=== PATIENT | male | born 1975 | race Caucasian/White ===

== ENCOUNTER 2022-09-12 07:13 | Emergency (ER) | payer OTHER, SELFPAY ==
[2022-09-12 07:00] VITALS: BP 138/90; PULSE 110; RESP 18; TEMP 36.8; O2SAT 93; BMI 30.7
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
--- NOTE | 2022-09-12 07:11 | PC.NURSE ---
abrasion noted to upper left scapular area
== END 2022-09-12 07:35 | disposition home or self-care (01) ==
LOC: ER 07:42
PROVIDERS: Emergency Provider Emergency Medicine Emergency Medical Services; PCP Nurse Practitioner Family
DX: S40.212A Abrasion of left shoulder, initial encounter (principal); V43.52XA Car driver injured in collision with other type car in traffic accident, initial encounter
CPT/HCPCS: 99283

== ENCOUNTER 2023-02-23 01:08 | Emergency (ER) | payer OTHER, SELFPAY ==
[2023-02-23 01:11] VITALS: BP 125/89; PULSE 98; RESP 16; TEMP 36.7; O2SAT 97; BMI 29.8
--- NOTE | 2023-02-23 01:27 | ED_ITS ---
HPI - General Adult General Chief complaint: Headache Stated complaint: HEADACHE Time Seen by Provider: 02/23/23 01:13 History of Present Illness HPI narrative: Over the past week the patient has been getting nightly migraines. He had them months ago but they went away after he got some teeth pulled. They returned about a week ago. he does not take any migraine-specific medication, ex. triptan, for his headaches. Pain along the left side of the face. He has some nausea without vomiting. No photophobia, neck pain, fever, muscle aches, cough or sore throat. Related Data Home Medications Medication Instructions Recorded Confirmed duloxetine 60 mg capsule,delayed 60 mg PO DAILY 02/23/23 02/23/23 release glimepiride 4 mg tablet 4 mg PO BID 02/23/23 02/23/23 metformin 500 mg tablet 500 mg PO BID 02/23/23 02/23/23 Previous Rx's Medication Instructions Recorded sumatriptan succinate 50 mg tablet See Rx Instructions PO .COMPLEX 02/23/23 #10 tabs Allergies Allergy/AdvReac Type Severity Reaction Status Date / Time No Known Drug Allergies Allergy Verified 09/12/22 07:03 [facility] Social History Smoking status: Former smoker Exam Narrative Exam Narrative: Nurses notes and vital signs reviewed and patient is not hypoxic. afebrile General: Well-appearing and in no apparent distress. Skin: Warm, dry, no pallor noted. No rash. Head: Normocephalic, atraumatic. Neck: Supple, non-tender. no meningismus Eye: Pupils are equal, round and EOMI. No scleral icterus. no nystagmus Ears, Nose, Mouth, and Throat: TM are clear, no nasal mucosal hypertrophy. Oral mucosa is moist, no posterior oropharynx erythema, uvula is mid-line Cardiovascular: Regular Rate and Rhythm without murmur, gallop or rub. Respiratory: No accessory muscle use or respiratory distress. Lungs are clear to auscultation, no wheezing, rales or rhonchi Neurological: A&O x4. No cranial nerve dysfunction observed. No truncal ataxia. Moves all extremities. Sensation intact. Psychiatric: Cooperative and interactive. Normal mood and affect. Constitutional Vital Signs, click to edit/add: Last Vital Signs Temp 98.1 F 02/23/23 01:11 Pulse 98 H 02/23/23 01:11 Resp 16 02/23/23 01:11 BP 125/89 02/23/23 01:11 Pulse Ox 97 02/23/23 01:11 O2 Del Method Room Air 02/23/23 01:11 Course Vital Signs Vital signs: Vital Signs Temperature 98.1 F 02/23/23 01:11 Pulse Rate 98 H 02/23/23 01:11 Respiratory Rate 16 02/23/23 01:11 Blood Pressure 125/89 02/23/23 01:11 Pulse Oximetry 97 02/23/23 01:11 Oxygen Delivery Method Room Air 02/23/23 01:11 Temperature 98.1 F 02/23/23 01:11 Pulse Rate 98 H 02/23/23 01:11 Respiratory Rate 16 02/23/23 01:11 Blood Pressure 125/89 02/23/23 01:11 Pulse Oximetry 97 02/23/23 01:11 Oxygen Delivery Method Room Air 02/23/23 01:11 Medical Decision Making MDM Narrative Medical decision making narrative: the patient was given Toradol, Solu-Medrol, Zofran and Benadryl. He was prescribed sumatriptan take at home. Primary physician follow-up recommended. emergency Department return if he worsens. Discharge Plan Discharge Chief Complaint: Headache Clinical Impression: Migraine Patient Disposition: Home, Self-Care Time of Disposition Decision: 01:30 Prescriptions / Home Meds: New sumatriptan succinate 50 mg tablet See Rx Instructions .ROUTE .COMPLEX Qty: 10 0RF Rx Instructions: take 1 tab at onset of headache; if no relief may repeat 1 tab after at least 2 hrs; max = 4 tabs/24 hr No Action metformin 500 mg tablet 500 mg PO BID glimepiride 4 mg tablet 4 mg PO BID duloxetine 60 mg capsule,delayed release(DR/EC) 60 mg PO DAILY Instructions: Migraine Headache (ED) Stand Alone Forms: Portal Instructions Referrals: ELEONORA DENISE [Primary Care Provider] - 1 week
[2023-02-23] MEDS: ONDANSETRON 4 MG RAPDIS TABLET SL (01:43)
[2023-02-23] MEDS: METHYLPREDNISOLONE SOD SUCC PF 125 MG/2 ML VIAL IM (01:43)
[2023-02-23] MEDS: DIPHENHYDRAMINE HCL 25 MG CAPSULE PO (01:43)
[2023-02-23] MEDS: KETOROLAC TROMETHAMINE 60 MG/2 ML VIAL IM (01:43)
== END 2023-02-23 01:52 | disposition home or self-care (01) ==
PROVIDERS: Emergency Provider Emergency Medicine; PCP Nurse Practitioner Family
DX: G43.909 Migraine, unspecified, not intractable, without status migrainosus (principal); Z79.84 Long term (current) use of oral hypoglycemic drugs; Z87.891 Personal history of nicotine dependence
CPT/HCPCS: 96372; 99284; J2930

== ENCOUNTER 2023-08-04 07:01 | Outpatient (OUT) | payer OTHER, SELFPAY ==
--- OUTSIDE RECORDS SUMMARY | 2023-08-04 07:04 | XMS_ITS | CCD ---
Author Organization [facility] Care Team Providers Care Professional Skater Name Role Phone SELF, REFERRED Primary Care Unavailable TANVI VAZQUEZ Surgeon Unavailable TANVI VAZQUEZ Attending Unavailable TANVI VAZQUEZ Admitting Unavailable [place] Procedure Practitioner Unavailab le SELF, REFERRED Referring Unavailable ELEONORA DAMIAN Admitting Unavailable ELEONORA DAMIAN Attending Unavailable SILVANA, DR WILLS Primary Care Unavailable SILVANA, DR WILLS Admitting Unavailable SILVANA, DR WILLS Attending Unavailable SILVANA, DR WILLS Primary Care Unavailable SILVANA, DR WILLS Consulting Unavailable ELEONORA DAMIAN Admitting Unavailable ELEONORA DAMIAN Attending Unavailable ELEONORA DAMIAN Primary Care Unavailable ELEONORA DAMIAN Consulting Unavailable Allergies Allergy Classification Reported Allergen(s) Allergy Type Date of Onset Reaction(s) Facility (2 sources) Amoxicillin / Clavulanate Drug Allergy [facility] Problems Problem Classification Problem Date Documented Da te Episodic/Chronic Diabetes mellitus without complication (4 sources) Type 2 diabetes mellitus without complications; Translations: [TYPE 2 DM WITHOUT COMPLICATIONS] Onset: 12-24-2021 Chronic Diabetes mellitus without complication (1 source) Other abnormal glucose; Translations: [OTHER ABNORMAL GLUCOSE] Onset: 12-27-2021 Episodic Results Test Name Value Interpretation Reference Range Facility GLYCOHEMOGLOBIN A1Con 2021 ADA RECOMMENDATION SEE BELOW Normal [facility] Comment on above: Result Comment: ADA RECOMMENDED LIMIT 4.0 - 6.0 ADA THERAPEUTIC TARGET < 7.0 ACTION SUGGESTED > 7.0 Performed By: #### A 1C #### [facility] [address] [address] [address] Rhonda Layton Glucose [Mass/Vol] 120 mg/dL Normal [facility] Comment on above: Performed By: #### A 1C #### [facility] [address] [place], [place] [address] Dr. Rhonda Layton HbA1c (Bld) [Mass fraction] 5.8 % Normal 4.5-6.2 [facility] Comment on above: Performed By: #### A 1C #### [facility] [address] [place] [address] Dr. Rhonda Layton INSULINon 07-02-2021 Insulin 8.6 uIU/mL Normal 2.6-24.9 [facility] Comment on above: Performed By: #### I NSULIN #### [facility] [address] [place] [address] Dr. Rhonda Layton CBC AUTO DIFFon 07-01-2021 BASO # 0.0 103/ul Normal 0.0-0.1 [facility] Comment on above: Performed By: #### C BC #### [facility] [address] [place] [address] Dr. Rhonda Layton Basophils/100 WBC (Bld) 0.5 % Normal 0.2-2.0 [facility] Comment on above: Performed By: #### C BC #### [facility] [address] [place] [address] Dr. Rhonda Layton EO # 0.1 103/ul Normal 0.0-0.7 [facility] Comment on above: Performed By: #### C BC #### [facility] [address] [place] [address] Dr. Rhonda Layton Eosinophils/100 WBC (Bld) 1.5 % Normal 0.9-7.0 [facility] Comment on above: Performed By: #### C BC #### [facility] [address] [place] [address] Dr. Rhonda Layton Erythrocyte distribution width (RBC) [Ratio] 13.7 % Normal 11.0-15.0 [facility] Comment on above: Performed By: #### C BC #### [facility] [address] [place] [address] Dr. Rhonda Layton Hematocrit (Bld) [Volume fraction] 41.8 % Critically low 42.0-54.0 [facility] Comment on above: Performed By: #### C BC #### [facility] [address] [place] [address] Dr. Rhonda Layton Hemoglobin (Bld) [Mass/Vol] 13.7 g/dL Critically low 14.0-18.0 [facility] Comment on above: Performed By: #### C BC #### [facility] [address] [place] [address] Dr. Rhonda Layton IG # 0.03 10e3/ul Normal 0.00-0.03 [facility] Comment on above: Performed By: #### C BC #### [facility] [address] [place] [address] Dr. Rhonda Layton IG % 0.5 % Normal 0.0-0.5 [facility] Comment on above: Performed By: #### C BC #### [facility] [address] [place] [address] Dr. Rhonda Layton LYMPH # 1.2 103/ul Normal 1.2-3.8 [facility] Comment on above: Performed By: #### C BC #### [facility] [address] [place] [address] Dr. Rhonda Layton Lymphocytes/100 WBC (Bld) 19.5 % Critically low 20.5-60.0 [facility] Comment on above: Performed By: #### C BC #### [facility] [address] [place] [address] Dr. Rhonda Layton MANUAL DIFF REQ NO Normal [facility] Comment on above: Performed By: #### C BC #### [facility] [address] [place] [address] Dr. Rhonda Layton MCH (RBC) [Entitic mass] 28.5 pg Normal 25.9-34.0 [facility] Comment on above: Performed By: #### C BC #### [facility] [address] [place] [address] Dr. Rhonda Layton MCHC (RBC) [Mass/Vol] 32.8 g/dL Normal 29.9-35.2 [facility] Comment on above: Performed By: #### C BC #### [facility] [address] [place] [address] Dr. Rhonda Layton MCV (RBC) [Entitic vol] 86.9 fL Normal 80.0-94.0 [facility] Comment on above: Performed By: #### C BC #### [facility] [address] [place] [address] Dr. Rhonda Layton MONO # 0.6 103/ul Normal 0.3-0.8 [facility] Comment on above: Performed By: #### C BC #### [facility] [address] [place] [address] Dr. Rhonda Layton Monocytes/100 WBC (Bld) 8.9 % Normal 1.7-12.0 [facility] Comment on above: Performed By: #### C BC #### [facility] [address] [place] [address] Dr. Rhonda Layton NEUT # 4.3 103/ul Normal 1.4-6.5 [facility] Comment on above: Performed By: #### C BC #### [facility] [address] [place] [address] Dr. Rhonda Layton Neutrophils/100 WBC (Bld) 69.1 % Normal 43.0-75.0 [facility] Comment on above: Performed By: #### C BC #### [facility] [address] [place] [address] Dr. Rhonda Layton Platelet mean volume (Bld) [Entitic vol] 9.4 fL Critically low 9.5-13.5 [facility] Comment on above: Performed By: #### C BC #### [facility] [address] [place] [address] Dr. Rhonda Layton PLT 221 103/ul Normal 150-450 [facility] Comment on above: Performed By: #### C BC #### [facility] [address] [place] [address] Dr. Rhonda Layton RBC 4.81 106/ul Normal 4.70-6.10 [facility] Comment on above: Performed By: #### C BC #### [facility] [address] [place] [address] Dr. Rhonda Layton WBC 6.2 103/ul Normal 4.0-11.0 [facility] Comment on above: Performed By: #### C BC #### [facility] [address] [address] [address] Rhonda Layton FREE THYROXINE INDEX T7on FTI 2.84 Normal [facility] Comment on above: Performed By: #### T 7, CMP, LIPID, TSH #### [facility] [address] [place] [address] Dr. Rhonda Layton T3U 36.0 % Normal 23.5-40.5 [facility] Comment on above: Performed By: #### T 7, CMP, LIPID, TSH #### [facility] [address] [place] [address] Dr. Rhonda Layton T4 [Mass/Vol] 7.90 ug/dL Normal 5.53-11.00 [facility] Comment on above: Performed By: #### T 7, CMP, LIPID, TSH #### [facility] [address] [place] [address] Dr. Rhonda Layton GLYCOHEMOGLOBIN A1Con 2021 ADA RECOMMENDATION ADA THERAPEUTIC TARG ET 6.0 - 7.0 ACTION SUGGESTED > 7.0 Normal [facility] Comment on above: Performed By: #### A 1C #### [facility] [address] [place] [address] Dr. Rhonda Layton Glucose [Mass/Vol] 232 mg/dL Normal [facility] Comment on above: Performed By: #### A 1C #### [facility] [address] [place] [address] Dr. Rhonda Layton HbA1c (Bld) [Mass fraction] 9.7 % Critically high <=6.0 [facility] Comment on above: Performed By: #### A 1C #### [facility] [address] [place] [address] Dr. Rhonda Layton LIPID PROFILEon 07-01-2021 CHOL-HDL RATIO NORM SEE BELOW Normal [facility] Comment on above: Result Comment: 3.3 - 4.4 LOW RISK 4.4 - 7.1 AVERAGE RISK 7.1 - 11.0 MODERATE RISK >11.0 HIGH RISK Performed By: #### T 7, CMP, LIPID, TSH #### [facility] [address] [address] [address] Rhonda Layton Cholesterol [Mass/Vol] 173 mg/dL Normal <=200 [facility] Comment on above: Performed By: #### T 7, CMP, LIPID, TSH #### [facility] [address] [address] [address] Rhonda Layton Cholesterol in HDL [Mass/Vol] 36 mg/dL Critically low 40-60 [facility] Comment on above: Performed By: #### T 7, CMP, LIPID, TSH #### [facility] [address] [address] [address] Rhonda Layton Cholesterol in LDL [Mass/Vol] 113.0 mg/dL Normal [facility] Comment on above: Performed By: #### T 7, CMP, LIPID, TSH #### [facility] [address] [address] [address] Rhonda Layton Cholesterol.total/C holesterol in HDL [Mass ratio] 4.8 {ratio} Normal [facility] Comment on above: Performed By: #### T 7, CMP, LIPID, TSH #### [facility] [address] [address] [address] Rhonda Layton HDL NORMAL > or = 60 mg/dl - LO W CARDIOVASCULAR RISK <40 mg/dl - HIGH CARDIOVASCULAR RISK Normal [facility] Comment on above: Performed By: #### T 7, CMP, LIPID, TSH #### [facility] [address] [address] [address] Rhonda Layton LDL CALC NORMAL SEE BELOW Normal [facility] Comment on above: Result Comment: <100 mg/dl OPTIMAL 100 - 129 mg/dl NEAR OR ABOVE OPTIMAL 130 - 159 mg/dl BORDERLINE HIGH 160 - 189 mg/dl HIGH >190 mg/dl VERY HIGH Performed By: #### T 7, CMP, LIPID, TSH #### [facility] [address] [address] [address] Rhonda Layton Triglyceride [Mass/Vol] 120 mg/dL Normal <=150 [facility] Comment on above: Performed By: #### T 7, CMP, LIPID, TSH #### [facility] [address] [address] [address] Rhonda Layton VLDL CALC 24.0 mg/dL Normal [facility] Comment on above: Performed By: #### T 7, CMP, LIPID, TSH #### [facility] [address] [address] [address] Rhonda Layton PROF 14(COMP METB)on 022 Albumin [Mass/Vol] 3.8 g/dL Normal 3.4-5.0 [facility] Comment on above: Performed By: #### T 7, CMP, LIPID, TSH #### [facility] [address] [address] [address] Rhonda Layton Albumin/Globulin [Mass ratio] 1.1 {ratio} Normal [facility] Comment on above: Performed By: #### T 7, CMP, LIPID, TSH #### [facility] [address] [address] [address] Rhonda Layton ALP [Catalytic activity/Vol] 82 U/L Normal 46-116 [facility] Comment on above: Performed By: #### T 7, CMP, LIPID, TSH #### [facility] [address] [address] [address] Rhonda Layton ALT [Catalytic activity/Vol] 24 U/L Normal 16-63 [facility] Comment on above: Performed By: #### T 7, CMP, LIPID, TSH #### [facility] [address] [address] [address] Rhonda Layton Anion gap [Moles/Vol] 13.1 mmol/L Normal [facility] Comment on above: Performed By: #### T 7, CMP, LIPID, TSH #### [facility] [address] [address] [address] Rhonda Layton AST [Catalytic activity/Vol] 9 U/L Critically low 15-37 [facility] Comment on above: Performed By: #### T 7, CMP, LIPID, TSH #### [facility] [address] [address] [address] Rhonda Layton Bilirubin [Mass/Vol] 1.2 mg/dL Normal 0.2-1.3 [facility] Comment on above: Performed By: #### T 7, CMP, LIPID, TSH #### [facility] [address] [place] [address] Dr. Rhonda Layton Calcium [Mass/Vol] 8.7 mg/dL Normal 8.5-10.1 [facility] Comment on above: Performed By: #### T 7, CMP, LIPID, TSH #### [facility] [address] [place] [address] Dr. Rhonda Layton Chloride [Moles/Vol] 104 mmol/L Normal 98-107 [facility] Comment on above: Performed By: #### T 7, CMP, LIPID, TSH #### [facility] [address] [place] [address] Dr. Rhonda Layton CO2 [Moles/Vol] 29.0 mmol/L Normal 22.0-30.[address] [facility] Comment on above: Performed By: #### T 7, CMP, LIPID, TSH #### [facility] [address] [place] [address] Dr. Rhonda Layton Creatinine [Mass/Vol] 0.79 mg/dL Normal 0.66-1.25 [facility] Comment on above: Performed By: #### T 7, CMP, LIPID, TSH #### [facility] [address] [place] [address] Dr. Rhonda Layton EGFR-AF ALGERIAN >60 Normal >=[address] [facility] Comment on above: Performed By: #### T 7, CMP, LIPID, TSH #### [facility] [address] [place] [address] Dr. Rhonda Layton EGFR-NON AF ALGERIAN >60 Normal >=60 [facility] Comment on above: Performed By: #### T 7, CMP, LIPID, TSH #### [facility] [address] [place] [address] Dr. Rhonda Layton Globulin (S) [Mass/Vol] 3.4 g/dL Normal [facility] Comment on above: Performed By: #### T 7, CMP, LIPID, TSH #### [facility] [address] [place], [place] [id number] Dr. Rhonda Layton Glucose [Mass/Vol] 181 mg/dL Critically high 74-106 [facility] Comment on above: Performed By: #### T 7, CMP, LIPID, TSH #### [facility] [address] [place] [address] Dr. Rhonda Layton Potassium [Moles/Vol] 4.1 mmol/L Normal 3.4-5.0 [facility] Comment on above: Performed By: #### T 7, CMP, LIPID, TSH #### [facility] [address] [place] [address] Dr. Rhonda Layton Protein [Mass/Vol] 7.2 g/dL Normal 6.1-8.2 [facility] Comment on above: Performed By: #### T 7, CMP, LIPID, TSH #### [facility] [address] [place] [address] Dr. Rhonda Layton Sodium [Moles/Vol] 142 mmol/L Normal 137-145 [facility] Comment on above: Performed By: #### T 7, CMP, LIPID, TSH #### [facility] [address] [place] [address] Dr. Rhonda Layton Urea nitrogen [Mass/Vol] 17.0 mg/dL Normal 7.0-18.0 [facility] Comment on above: Performed By: #### T 7, CMP, LIPID, TSH #### [facility] [address] [place] [address] Dr. Rhonda Layton Urea nitrogen/Creatinine [Mass ratio] 21.5 mg/mg Normal [facility] Comment on above: Performed By: #### T 7, CMP, LIPID, TSH #### [facility] [address] [place] [address] Dr. Rhonda Layton TSHon 07-01-2021 TSH 1.943 uIU/mL Normal 0.470-4.680 [facility] Comment on above: Performed By: #### T 7, CMP, LIPID, TSH #### [facility] [address] [place] [address] Dr. Rhonda Layton TSH RANGE SEE BELOW Normal [facility] Comment on above: Result Comment: <0.3 4 UIU/ml HYPERTHYROID 0.34-5.60 UIU/ml EUTHYROID >5.60 UIU/ml HYPOTHYROID Performed By: #### T 7, CMP, LIPID, TSH #### [facility] [address] [address] [address] Rhonda Layton Endoscopy Reporton Endoscopy Report MR#: [id number] [facility] Pt. Name: Marcia Hogan Surgery Date: 11/18/2020 Room #: 0C Date of : 1975 PROCEDURE NOTE ATTENDING: Tanvi Vazquez M.D. PROCEDURE PERFORMED: Endoscopic ultrasound. INDICATIONS: History of pancreatitis and peripancreatic fluid collection, rule out pancreatic lesion, rule out choledocholithiasis. MEDICATIONS: General anesthesia administered by Anesthesia team. FOURTH HAND: Gilberto Solomon M.D. PROCEDURE IN DETAIL: After obtaining the informed consent, which included the risks, benefits, alternatives, and complications; complications including bleeding, perforation, and reaction to medications, the patient was placed in the left lateral decubitus position after receiving general anesthesia administered by Anesthesia team after which the Olympus video radial echoendoscope was introduced through the mouth down to the esophagus, stomach, then to the first and second part of the duodenum with no difficulties. The examination of the esophagus was unremarkable. The examination of the stomach revealed slightly bulging posterior wall of the gastric antrum. The examination of the duodenum looked unremarkable. The endosonographic examination of the abdominal aorta and the celiac axis was unremarkable. No lymphadenopathy was noted. The examination of the site of the body and the tail of the pancreas was suboptimal due to the presence of a large anechoic round and well-demarcated cystic lesion that measured 90 mm x 98 mm. Small amount of debris was noted within the cystic lesion. No solid component was noted. The endosonographic examination of the pancreatic head revealed hyperechoic foci and hyperechoic strands. The pancreatic duct measured 3.3 mm at the head of the pancreas. The common bile duct measured 9 mm in size. No choledocholithiasis was noted. The scope was then withdrawn and the patient tolerated the procedure well and was sent to the recovery room in stable condition. IMPRESSION: 1. Large pancreatic cyst measured 98 mm x 90 mm noted adjacent and abutting the gastric wall at the area of the pancreatic body/tail. Small amount of debris was noted within the cystic lesion. 2. Hyperechoic foci and hyperechoic strands were noted at the pancreatic head with no discrete mass noted. 3. Unremarkable examination of the common bile duct aside of being slightly prominent and measuring 9 mm. No choledocholithiasis was identified. PLAN: 1. Pancreatic pseudocyst drainage was not performed because the patient is completely asymptomatic with no signs of abdominal pain, nausea, vomiting, early satiety or fever. 2. The current guidelines of treating pancreatic pseudocyst requires to have symptoms for the indication of drainage. The patient is completely asymptomatic as mentioned above. If symptoms develop, i.e. abdominal pain and weight loss, nausea, vomiting, or early satiety or fever, then an endoscopic gastrostomy will be indicated to drain the cyst. 3. Avoid alcohol use. 4. Consider treatment with pancreatic enzymes. I was present in the endoscopy room during the entire procedure to supervise the fellow. Electronically Signed by: Tanvi Vazquez M.D. 12/15/2020 08:16 A Tanvi Vazquez M.D. Date Dict: 11/18/2020/03:57 P/Tanvi Vazquez M.D. Date Trans: 11/19/2020 08:50 A/maria elena [id number] Normal [facility] GI Letteron 11-19-2020 GI Letter [facility] Academic Department of Medicine Academic Fax: Division of [phone] Gastroenterology Clinic Phone: [facility] [phone] [facility] Fax: [place] [phone] [address] RE: Patient Name: Marcia Hogan MR #: [id number] Date of : 1975 Date of Service:11/18/2020 [facility] [address] [place], [place] [address], [place] [address] Dear Kristy Rickie, I had the pleasure of seeing your patient in our Endoscopy Unit for his history of acute pancreatitis and peripancreatic fluid collection. The patient states that he is asymptomatic with no abdominal pain, nausea, vomiting, or early satiety. He is scheduled to have an endoscopic ultrasound to assess the pancreaticobiliary system. PROCEDURE PERFORMED Endoscopic ultrasound. INDICATIONS History of pancreatitis and peripancreatic fluid collection, rule out pancreatic lesion, rule out choledocholithiasis. MEDICATIONS General anesthesia administered by Anesthesia team. FOURTH HAND Gilberto Solomon M.D. PROCEDURE IN DETAIL After obtaining the informed consent, which included the risks, benefits, alternatives, and complications; complications including bleeding, perforation, and reaction to medications, the patient was placed in the left lateral decubitus position after receiving general anesthesia administered by Anesthesia team after which the Olympus video radial echoendoscope was introduced through the mouth down to the esophagus, stomach, then to the first and second part of the duodenum with no difficulties. The examination of the esophagus was unremarkable. The examination of the stomach revealed slightly bulging posterior wall of the gastric antrum. The examination of the duodenum looked unremarkable. The endosonographic examination of the abdominal aorta and the celiac axis was unremarkable. No lymphadenopathy was noted. The examination of the site of the body and the tail of the pancreas was suboptimal due to the presence of a large anechoic round and well-demarcated cystic lesion that measured 90 mm x 98 mm. Small amount of debris was noted within the cystic lesion. No solid component was noted. The endosonographic examination of the pancreatic head revealed hyperechoic foci and hyperechoic strands. The pancreatic duct measured 3.3 mm at the head of the pancreas. The common bile duct measured 9 mm in size. No choledocholithiasis was noted. The scope was then withdrawn and the patient tolerated the procedure well and was sent to the recovery room in stable condition. IMPRESSION 1. Large pancreatic cyst measured 98 mm x 90 mm noted adjacent and abutting the gastric wall at the area of the pancreatic body/tail. Small amount of debris was noted within the cystic lesion. 2. Hyperechoic foci and hyperechoic strands were noted at the pancreatic head with no discrete mass noted. 3. Unremarkable examination of the common bile duct aside of being slightly prominent and measuring 9 mm. No choledocholithiasis was identified. PLAN 1. Pancreatic pseudocyst drainage was not performed because the patient is completely asymptomatic with no signs of abdominal pain, nausea, vomiting, early satiety or fever. 2. The current guidelines of treating pancreatic pseudocyst requires to have symptoms for the indication of drainage. The patient is completely asymptomatic as mentioned above. If symptoms develop, i.e. abdominal pain and weight loss, nausea, vomiting, or early satiety or fever, then an endoscopic gastrostomy will be indicated to drain the cyst. 3. Avoid alcohol use. 4. Consider treatment with pancreatic enzymes. I was present in the endoscopy room during the entire procedure to supervise the fellow. Thank you very much, Ms. Damian for allowing me to participate in the care of this very pleasant patient. Sincerely, Electronically Signed by: Tanvi Vazquez M.D. 12/15/2020 08:16 A Tanvi Vazquez M.D. Date Dict: 11/18/2020/03:57 P/Tanvi Vazquez M.D. Date Trans: 11/19/2020 08:51 A/mmo Revised: 11/19/2020 12:16 P/pa Copy/paste [id number] cc: Kevan ArellanoNKristyPKristy [address] [place] [id number] Normal [facility] ANAon 08-31-2020 SAMRA SCREEN <1:40 Normal <1:40,1:40 [facility] Comment on above: Performed By: #### 1 0196 #### [address] IGG SUBCLASSES (1,2,3,4) 505 77on 08-31-2020 IGG SUBCLASS 1 654 mg/dL Normal 240-1118 [facility] Comment on above: Result Comment: REFE RENCE INTERVAL: Immunoglobulin G Subclass 1 The total IgG (mg/dL) can be derived from the sum of the subclass IgG1, IgG2, IgG3, and IgG4 values. However, a confirmatory and more precise total IgG is available by the turbidimetric method of quantitation for total IgG. Refer to test Immunoglobulin G, Serum ([id number]). Access complete set of age- and/or gender-specific reference intervals for this test in the [facility] ([facility]). IGG SUBCLASS 2 449 mg/dL Normal 124-549 [facility] Comment on above: Result Comment: REFE RENCE INTERVAL: Immunoglobulin G Subclass 2 Access complete set of age- and/or gender-specific reference intervals for this test in the [facility] ([facility]). IGG SUBCLASS 3 64 mg/dL Normal 21-134 [facility] Comment on above: Result Comment: REFE RENCE INTERVAL: Immunoglobulin G Subclass 3 Access complete set of age- and/or gender-specific reference intervals for this test in the [facility] ([facility]). IGG SUBCLASS 4 40 mg/dL Normal 1-123 [facility] Comment on above: Result Comment: REFE RENCE INTERVAL: Immunoglobulin G Subclass 4 Access complete set of age- and/or gender-specific reference intervals for this test in the [facility] ([facility]). Performed By: [facility] [address] [place] [id number] Real Estate Coordinator: Fadumo Toribio MD LIPID PROFILEon 08-31-2020 Cholesterol [Mass/Vol] 179 mg/dL Normal 120-200 [facility] Comment on above: Result Comment: CHOL ESTEROL REFERENCE RANGE: 20 YEARS AND OLDER CARDIOVASCULAR RISK Less than 200 mg/dl Low Risk 200 to 239 mg/dl Borderline Risk 240 mg/dl and greater High Risk Performed By: #### 4 [id number], [id number] #### [facility] [address] [place] [address], [facility] Cholesterol in HDL [Mass/Vol] 25 mg/dL Normal 23-92 [facility] Comment on above: Result Comment: Slig ht variation in normal range could be due to gender and/or age. HDL CHOLESTEROL REFERENCE RANGE: 20 years and older Cardiovascular Risk > or =60 mg/dL Desirable 40 TO 59 mg/dL Low Risk <40 mg/dL High Risk Performed By: #### 4 [id number], [id number] #### [facility] [address] [place] [address], [facility] Cholesterol in LDL [Mass/Vol] 125 mg/dL Normal 0-130 [facility] Comment on above: Result Comment: LDL IS A CALCULATION LDL IS ONLY VALID IF THE TRIG IS LESS THAN 400. Performed By: #### 4 6413, [id number] #### [facility] [address] [place] [address], [facility] Cholesterol.total/C holesterol in HDL [Mass ratio] 7.2 {ratio} High 0.0-4.5 [facility] Comment on above: Performed By: #### 4 6413, 63636 #### [facility] [address] [place] [address], [facility] NON-HDL CHOLESTEROL 154 mg/dL Normal [facility] Comment on above: Performed By: #### 4 6413, 57863 #### [facility] [address] [place] [address], [facility] Triglyceride [Mass/Vol] 147 mg/dL Normal 40-149 [facility] Comment on above: Result Comment: TRIG LYCERIDE REFERENCE RANGE: 20 YEARS AND OLDER CARDIOVASCULAR RISK LESS THAN 150 mg/dl LOW RISK 150 TO 199 mg/dl BORDERLINE RISK 200 mg/dl AND GREATER HIGH RISK Performed By: #### 4 [id number], [id number] #### [facility] [address] [place] [address], [facility] VLDL CHOL 29 mg/dL Normal 0-40 [facility] Comment on above: Performed By: #### 4 6413, 73602 #### [facility] [address] [place] [address], [facility] LIVER BATTERYon 08-31-2020 Albumin [Mass/Vol] 4.3 g/dL Normal 3.5-5.7 [facility] Comment on above: Performed By: #### 4 1013, 35019 #### [facility] [address] [place] [address], [facility] ALKALINE PHOSPH 89 IU/L Normal 34-104 [facility] Comment on above: Performed By: #### 4 6413, [id number] #### [facility] [address] [place] [id number], [facility] ALT [Catalytic activity/Vol] 32 U/L Normal 7-52 [facility] Comment on above: Performed By: #### 4 6413, 40354 #### [facility] [address] [place] [address], [facility] AST [Catalytic activity/Vol] 14 U/L Normal 13-39 [facility] Comment on above: Performed By: #### 4 6413, 60393 #### [facility] [address] [place] [id number], [facility] Bilirubin [Mass/Vol] 1.5 mg/dL High 0.3-1.0 [facility] Comment on above: Performed By: #### 4 6413, 90465 #### [facility] [address] [place] [id number], [facility] Bilirubin.direct [Mass/Vol] 0.3 mg/dL High 0.0-0.2 [facility] Comment on above: Performed By: #### 4 6413, 52444 #### [facility] [address] [place] [id number], [facility] Protein [Mass/Vol] 7.6 g/dL Normal 6.0-8.3 [facility] Comment on above: Performed By: #### 4 6413, 27397 #### [facility] [address] [place] [address], [facility] Patient Educationon 08-10-19 21 Patient Education Gastroenterology Hernia, Adult A hernia is the bulging of an organ or tissue through a weak spot in the muscles of the abdomen (abdominal wall). Hernias develop most often near the belly button (navel) or the area where the leg meets the lower abdomen (groin). Common types of hernias include: ? Incisional hernia. This type bulges through a scar from an abdominal surgery. ? Umbilical hernia. This type develops near the navel. ? Inguinal hernia. This type develops in the groin or scrotum. ? Femoral hernia. This type develops under the groin, in the upper thigh area. ? Hiatal hernia. This type occurs when part of the stomach slides above the muscle that separates the abdomen from the chest (diaphragm). What are the causes? This condition may be caused by: ? Heavy lifting. ? Coughing over a long period of time. ? Straining to have a bowel movement. Constipation can lead to straining. ? An incision made during an abdominal surgery. ? A physical problem that is present at (congenital defect). ? Being overweight or obese. ? Smoking. ? Excess fluid in the abdomen. ? Undescended testicles in males. What are the signs or symptoms? The main symptom is a skin-colored, rounded bulge in the area of the hernia. However, a bulge may not always be present. It may grow bigger or be more visible when you cough or strain (such as when lifting something heavy). A hernia that can be pushed back into the area (is reducible) rarely causes pain. A hernia that cannot be pushed back into the area (is incarcerated) may lose its blood supply (become strangulated). A hernia that is incarcerated may cause: ? Pain. ? Fever. ? Nausea and vomiting. ? Swelling. ? Constipation. How is this diagnosed? A hernia may be diagnosed based on: ? Your symptoms and medical history. ? A physical exam. Your health care provider may ask you to cough or move in certain ways to see if the hernia becomes visible. ? Imaging tests, such as: ? X-rays. ? Ultrasound. ? CT scan. How is this treated? A hernia that is small and painless may not need to be treated. A hernia that is large or painful may be treated with surgery. Inguinal hernias may be treated with surgery to prevent incarceration or strangulation. Strangulated hernias are always treated with surgery because a lack of blood supply to the trapped organ or tissue can cause it to . Surgery to treat a hernia involves pushing the bulge back into place and repairing the weak area of the muscle or abdominal wall. Follow these instructions at home: Activity ? Avoid straining. ? Do not lift anything that is heavier than 10 lb (4.5 kg), or the limit that you are told, until your health care provider says that it is safe. ? When lifting heavy objects, lift with your leg muscles, not your back muscles. Preventing constipation ? Take actions to prevent constipation. Constipation leads to straining with bowel movements, which can make a hernia worse or cause a hernia repair to break down. Your health care provider may recommend that you: ? Drink enough fluid to keep your urine pale yellow. ? Eat foods that are high in fiber, such as fresh fruits and vegetables, whole grains, and beans. ? Limit foods that are high in fat and processed sugars, such as fried or sweet foods. ? Take an fmpc-mee-fijvpde or prescription medicine for constipation. General instructions ? When coughing, try to cough gently. ? You may try to push the hernia back in place by very gently pressing on it while lying down. Do not try to force the bulge back in if it will not push in easily. ? If you are overweight, work with your health care provider to lose weight safely. ? Do not use any products that contain nicotine or tobacco, such as cigarettes and e-cigarettes. If you need help quitting, ask your health care provider. ? If you are scheduled for hernia repair, watch your hernia for any changes in shape, size, or color. Tell your health care provider about any changes or new symptoms. ? Take mthj-kbt-lpqbhbd and prescription medicines only as told by your health care provider. ? Keep all follow-up visits as told by your health care provider. This is important. Contact a health care provider if: ? You develop new pain, swelling, or redness around your hernia. ? You have signs of constipation, such as: ? Fewer bowel movements in a week than normal. ? Difficulty having a bowel movement. ? Stools that are dry, hard, or larger than normal. Get help right away if: ? You have a fever. ? You have abdomen pain that gets worse. ? You feel nauseous or you vomit. ? You cannot push the hernia back in place by very gently pressing on it while lying down. Do not try to force the bulge back in if it will not push in easily. ? The hernia: ? Changes in shape, size, or color. ? Feels hard or tender. These symptoms may represent a serious (more content not included)... Normal [facility] Provider Letter FTMCon 08-09 Provider Letter [facility] ELEONORA DAMIAN, [address] [place] [address] Re: MARCIA HOGAN Date of : 1975 Thank you for your referral of Marcia Hogan for right groin pain. I have enclosed my consultation notes for your review. I will be happy to follow Marcia should his symptoms persist. Sincerely, Mohit Francis MD General Surgery [facility] Ambulatory Clinical Summaryo n 08-06-2020 Ambulatory Clinical Summary {[id number] [facility] Physician Referralon 021 Physician Referral [phone] [facility] [id number] D:127 Normal [facility] Encounters Encounter Date Encounter Type Care Provider Facility Start: 12-24-2021 End: 12-25-2021 ambulatory ELEONORA DAMIAN Facility:[facility] Start: 10-23-2021 ambulatory ELEONORA DAMIAN Facility: [facility] Start: 07-06-2021 Encounter for genera l adult medical examination without abnormal findings DR JOHANN PINA [facility] Start: 07-01-2021 End: 07-02-[address] JOHANN PINA Facility:[facility] Start: 07-01-2021 End: 07-02-2021 Encounter for general adult medical examination without abnormal findings DR JOHANN PINA Facility:[facility] Start: 11-18-2020 End: 11-19-2020 ambulatory REFERRED SELF Facility:[facility] Procedures Date Procedure Procedure Detail Performing Clinician Start: 11-18-2020 ANES UPR GI NDSC PX NOS REFERRED SELF Start: 11-18-2020 EGD US EXAM DUODENUM/JEJUNUM TANVI VAZQUEZ Payers Date Payer Category Payer Private Health Insurance [id number] 1975 Unknown [id number] 1975 Unknown [id number] [id number] [id number] 1975 Unknown [id number] [id number] [id number] 1975 Unknown [id number] [id number] [id number] 1961 Private Health Insurance [id number] 1961 Self-pay 1961 Unknown [id number] Clinical Note 08-09-2020 Note Date & Type Note Facility 08-09-2020 Note Chief Complaint Consultation for Rt Groin Pain HPI Staff 45 year old male referred by Cassidy Damian on consultation of Right Groin Pain. CT Abdomen/Pelvis with contrast completed 07/19/20. C/o swelling in right groin area and pain in right side- waistline. Little pain with movement. No change in size. Taking Ibuprofen 400 mg PRN for pain. History of Present Illness 45 yo male with h/o chronic pancreatitis, large pseudocyst of pancreas, extending down left retroperitoneum; also chronic right hydronephrosis; complains of discomfort in RLQ/groin; relieved with rest, slight bulge in area; no N/V; no bowel changes, no skin changes; only abdominal operation cholecystectomy; does do heavy lifting. takes Ibuprofen prn, no asa; former smoker. patient has appointment in several weeks with senior biostatistician/group leader specializing in pancreatitis. Review of Systems PHQ Score Initial Depression Screen Score: 0 Initial Depression Screen Score: 0 ROS - Provider Constitutional: no fever, no sweats, no weight loss. Eyes: no glasses, no blurred vision, no visual loss. ENMT: no dentures, no hoarseness, no swallowing difficulties, no hearing loss, no ear infection(s), no nose bleeds. Cardiovascular: normal blood pressure, no chest pain, regular heartbeat, no heart murmur. Respiratory: no shortness of breath, no cough, no asthma, no wheezing. Gastrointestinal: no nausea, no vomiting, no diarrhea, no constipation, no blood in stool, no change in bowel habits, moderate abdominal pain, no hepatitis. Genitourinary: yes kidney stones, no urine infection, no dysuria. Musculoskeletal: moderate pain, no weakness. Skin: no changing moles, no rash, no skin lumps. Neurologic: no seizures, no epilepsy, no headache. Psychiatric: no emotional or psychiatric problem. Heme/Lymph: no bleeding problems, no anemia, no blood clots, no transfusions. Allergy/Immunologic: no swollen lymph nodes/glands, no IV drug abuse. Other: Additional ROS info: Except as noted in the above Review of Systems and in the History of Present Illness, all other systems have been reviewed and are negative or noncontributory. Physical Exam Vitals & Measurements T: 35.9 ?C (Tympanic) BP: 100/62 HT: 182.88 cm WT: 85.5 kg BMI: 25.56 HEENT: normal conjunctiva, sclera clear, no scleral icterus, EOM intact, PERRLA, oral mucosa moist without lesions. Neck: trachea midline, no mass, symmetric, no thyromegaly or nodules, no adenopathy Respiratory: lungs CTA, respirations non labored. Cardiovascular: regular rate and rhythm, no murmur, no pedal edema or varicosities. Gastrointestinal: soft, non distended, tender mid and LLQ, no peritoneal signs, small reducible hernia right inguinal area, nontender, no skin changes; no enlargement of right external inguinal ring; no masses, no palpable hernias, diastasis recti no, no hepatosplenomegaly; normal bs Lymphatic: no cervical adenopathy, no axillary adenopathy, no inguinal adenopathy. Musculoskeletal: normal gait, digits and nails without infection, nodes, cyanosis, clubbing. Skin: no rashes, no lesions, no ulcers, no subcutaneous nodules, induration. Psychiatric/Neuro: oriented to time, place, person, judgement normal, affect appropriate for age, insight intact, no focal deficits. Tests: labs reviewed, x-rays reviewed, review of old records completed, Assessment/Plan 1. Right inguinal hernia (K40.90: Unilateral inguinal hernia, without obstruction or gangrene, not specified as recurrent) small, reduces spontaneously; patient needs to have issues of pancreatic pseudocyst and chronic right hydronephrosis addressed prior to any surgical intervention; wear lower abdominal compression garment or belt when lifting; signs/symptoms of incarceration/strangulation of hernia explained in detail, and patient understands that he should seek prompt medical evaluation if they were to occur. call with problems/questions. 2. Abdominal pain, right lower quadrant (R10.31: Right lower quadrant pain) may be due to chronic right hydronephrosis 3. Abdominal pain, LUQ (left upper quadrant) (R10.12: Left upper quadrant pain) likely from pseudocyst 4. Hydronephrosis of right kidney (N13.30: Unspecified hydronephrosis) see # 1, 2 5. 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 [facility] Comment on above: Result Comment: Elec tronically Signed By: BEBO BLISS, Mohit Reyes\hortencia\Date and Time Signed: 08/09/20 12:25 EDT Summary Purpose Family History No Family History Records FoundNo Family History Records FoundNo Family History Records Found Advance Directives No Advanced Directives Records FoundNo Advanced Directives Records FoundNo Advanced Directives Records Found Additional Source Comments (unrecognized sect ion and content) No Status Records FoundNo Status Records FoundNo Status Records Found INFORMATION SOURCE (unrecogn ized section and content) DATE CREATED AUTHOR 08/11/2020 [facility] DATE CREATED AUTHOR AUTHOR'S ORGANIZ ATION 12/16/2020 [facility] DATE CREATED AUTHOR AUTHOR'S ORGANIZ ATION 12/27/2021 [facility] FOR RECORDS PERTAINING TO PATIENTS WHO ARE OR HAVE BEEN ENROLLED IN A CHEMICAL DEPENDENCY/SUBSTANCEABUSE PROGRAM, SOME INFORMATION MAY BE OMITTED. This clinical summary was aggregated from multiple sources. Caution should be exercised in using it in the provision of clinical care. This summary normalizes information from multiple sources, and as a consequence, information in this document may materially change the coding, format and clinical context of patient data. In addition, data may be omitted in some cases. CLINICAL DECISIONS SHOULD BE BASED ON THE PRIMARY CLINICAL RECORDS. [facility] [employer] [facility]. provides no warranty or guarantee of the accuracy or completeness of information in this document.
[2023-08-04 07:32] LABS: Basophils Percent Auto 0.5 % (0.2-2.0); Eosinophils Absolute Auto 0.2 10^3/uL (0.0-0.7); Eosinophils Percent Auto 2.3 % (0.9-7.0); Hematocrit 39.7 % (42.0-54.0); Hemoglobin 13.6 g/dL (14.0-18.0); Immature Granulocytes Abs Auto 0.04 10^3/uL (0.00-0.03); Immature Granulocytes Pct Auto 0.6 % (0.0-0.5); Lymphocytes Absolute Auto 1.3 10^3/uL (1.2-3.8); Lymphocytes Percent Auto 20.2 % (20.5-60.0); Mean Corpuscular HGB Conc 34.3 g/dL (29.9-35.2); Mean Corpuscular Hemoglobin 29.1 pg (25.9-34.0); Mean Platelet Volume 9.6 fL (9.5-13.5); Monocytes Absolute Auto 0.5 10^3/uL (0.3-0.8); Monocytes Percent Auto 7.3 % (1.7-12.0); Neutrophils Absolute Auto 4.5 10^3/uL (1.4-6.5); Neutrophils Percent Auto 69.1 % (43.0-75.0); Platelet Count 229 10^3/uL (150-450); Red Blood Count 4.67 10^6/uL (4.70-6.10); Red Cell Distribution Width 13.2 % (11.0-15.0); White Blood Count 6.5 10^3/uL (4.0-11.0)
[2023-08-04 11:01] LABS: Estimated Average Glucose 280 mg/dL; Glycohemoglobin A1C 11.4 % (4.5-6.2)
[2023-08-04 11:13] LABS: Prostate Specific Antigen Scrn 0.96 ng/mL (<=4.00)
[2023-08-04 13:08] LABS: Alanine Aminotransferase 33 U/L (16-63); Albumin Level 3.8 g/dL (3.4-5.0); Alkaline Phosphatase 108 U/L (46-116); Anion Gap 10.3; Aspartate Amino Transferase 9 U/L (15-37); BUN Creatinine Ratio 22.1; Bilirubin Total 0.8 mg/dL (0.2-1.0); Calcium 9.3 mg/dL (8.5-10.1); Carbon Dioxide 28.6 mmol/L (21.0-32.0); Chloride 98 mmol/L (98-107); Chol HDL Ratio 7.1; Cholesterol 198 mg/dL (<=200); Estimated GFR (African America >60 (>=60); Estimated GFR (Non-African Ame >60 (>=60); Free T3 1.96 pg/mL (2.18-3.98); Globulin 3.7 g/dL; Glucose 380 mg/dL (74-106); HDL Cholesterol 28 mg/dL (40-60); Potassium 3.9 mmol/L (3.5-5.1); Sodium 133 mmol/L (136-145); Thyroid Stimulating Hormone 2.268 uIU/mL (0.358-3.740); Total Protein 7.5 g/dL (6.4-8.2); Triglycerides 458 mg/dL (<=150); Uric Acid 3.7 mg/dL (3.5-7.2); VLDL CHOLESTEROL 91.6 mg/dL
[2023-08-04 14:01] LABS: LDL Cholesterol Direct 89 mg/dL
[2023-08-07 00:11] LABS: Insulin 9.6 uIU/mL (2.6-24.9)
== END 2023-08-04 07:02 | disposition home or self-care (01) ==
LOC: LAB 07:03
PROVIDERS: PCP Nurse Practitioner Family; Visit Provider Nurse Practitioner Family
DX: Z00.00 Encounter for general adult medical examination without abnormal findings (principal)
CPT/HCPCS: 36415; 80053; 80061; 83036; 83525; 83721; 84436; 84443; 84481; 84550; 85025; G0103

== ENCOUNTER 2023-11-17 07:24 | Outpatient (OUT) | payer OTHER, SELFPAY ==
--- OUTSIDE RECORDS SUMMARY | 2023-11-17 07:27 | XMS_ITS | CCD ---
Author Organization [place] [facility] Team Providers Care Marine Farmer Name Role Phone SELF, REFERRED Primary Care Unavailable TANVI VAZQUEZ Surgeon Unavailable TANVI VAZQUEZ Attending Unavailable TANVI VAZQUEZ Admitting Unavailable MD Procedure Practitioner Unavailab le SELF, REFERRED Referring Unavailable HOWIE MARIAM Admitting Unavailable MARIAM DAMIAN Attending Unavailable SILVANA, DR WILLS Primary Care Unavailable SILVANA, DR WILLS Admitting Unavailable SILVANA, DR WILLS Attending Unavailable SILVANA, DR WILLS Primary Care Unavailable SILVANA, DR WILLS Consulting Unavailable MARIAM DAMIAN Admitting Unavailable MARIAM DAMIAN Attending Unavailable MARIAM DAMIAN Primary Care Unavailable MARIAM DAMIAN Consulting Unavailable Allergies Allergy Classification Reported Allergen(s) Allergy Type Date of Onset Reaction(s) Facility (2 sources) Amoxicillin / Clavulanate Drug Allergy [facility] Repository Problems Problem Classification Problem Date Documented Da te Episodic/Chronic Diabetes mellitus without complication (4 sources) Type 2 diabetes mellitus without complications; Translations: [TYPE 2 DM WITHOUT COMPLICATIONS] Onset: 12-24-2021 Chronic Diabetes mellitus without complication (1 source) Other abnormal glucose; Translations: [OTHER ABNORMAL GLUCOSE] Onset: 12-27-2021 Episodic Results Test Name Value Interpretation Reference Range Facility GLYCOHEMOGLOBIN A1Con 2021 ADA RECOMMENDATION SEE BELOW Normal [facility] Comment on above: Result Comment: ADA RECOMMENDED LIMIT 4.0 - 6.0 ADA THERAPEUTIC TARGET < 7.0 ACTION SUGGESTED > 7.0 Performed By: #### A 1C #### [facility] [address] [address] [address] Rhonda Layton Glucose [Mass/Vol] 120 mg/dL Normal [facility] Comment on above: Performed By: #### A 1C #### [facility] [address] [place], [place] [address] Dr. Rhonda Layton HbA1c (Bld) [Mass fraction] 5.8 % Normal 4.5-6.2 [facility] Comment on above: Performed By: #### A 1C #### [facility] [address] [place] [address] Dr. Rhonda Layton INSULINon 07-02-2021 Insulin 8.6 uIU/mL Normal 2.6-24.9 [facility] Comment on above: Performed By: #### I NSULIN #### [facility] [address] [place] [address] Dr. Rhonda Layton CBC AUTO DIFFon 07-01-2021 BASO # 0.0 103/ul Normal 0.0-0.1 [facility] Comment on above: Performed By: #### C BC #### [facility] [address] [place] [address] Dr. Rhonda Layton Basophils/100 WBC (Bld) 0.5 % Normal 0.2-2.0 [facility] Comment on above: Performed By: #### C BC #### [facility] [address] [place] [address] Dr. Rhonda Layton EO # 0.1 103/ul Normal 0.0-0.7 [facility] Comment on above: Performed By: #### C BC #### [facility] [address] [place] [address] Dr. Rhonda Layton Eosinophils/100 WBC (Bld) 1.5 % Normal 0.9-7.0 [facility] Comment on above: Performed By: #### C BC #### [facility] [address] [place] [address] Dr. Rhonda Layton Erythrocyte distribution width (RBC) [Ratio] 13.7 % Normal 11.0-15.0 [facility] Comment on above: Performed By: #### C BC #### [facility] [address] [place] [address] Dr. Rhonda Layton Hematocrit (Bld) [Volume fraction] 41.8 % Critically low 42.0-54.0 [facility] Comment on above: Performed By: #### C BC #### [facility] [address] [place] [address] Dr. Rhonda Layton Hemoglobin (Bld) [Mass/Vol] 13.7 g/dL Critically low 14.0-18.0 [facility] Comment on above: Performed By: #### C BC #### [facility] [address] [place] [address] Dr. Rhonda Layton IG # 0.03 10e3/ul Normal 0.00-0.03 [facility] Comment on above: Performed By: #### C BC #### [facility] [address] [place] [address] Dr. Rhonda Layton IG % 0.5 % Normal 0.0-0.5 [facility] Comment on above: Performed By: #### C BC #### [facility] [address] [place] [address] Dr. Rhonda Layton LYMPH # 1.2 103/ul Normal 1.2-3.8 [facility] Comment on above: Performed By: #### C BC #### [facility] [address] [place] [address] Dr. Rhonda Layton Lymphocytes/100 WBC (Bld) 19.5 % Critically low 20.5-60.0 [facility] Comment on above: Performed By: #### C BC #### [facility] [address] [place] [address] Dr. Rhonda Layton MANUAL DIFF REQ NO Normal [facility] Comment on above: Performed By: #### C BC #### [facility] [address] [place] [address] Dr. Rhonda Layton MCH (RBC) [Entitic mass] 28.5 pg Normal 25.9-34.0 [facility] Comment on above: Performed By: #### C BC #### [facility] [address] [place] [address] Dr. Rhonda Latyon MCHC (RBC) [Mass/Vol] 32.8 g/dL Normal 29.9-35.2 [facility] Comment on above: Performed By: #### C BC #### [facility] [address] [place] [address] Dr. Rhonda Layton MCV (RBC) [Entitic vol] 86.9 fL Normal 80.0-94.0 [facility] Comment on above: Performed By: #### C BC #### [facility] [address] [place] [address] Dr. Rhonda Layton MONO # 0.6 103/ul Normal 0.3-0.8 [facility] Comment on above: Performed By: #### C BC #### [facility] [address] [place] [address] Dr. Rhonda Layton Monocytes/100 WBC (Bld) 8.9 % Normal 1.7-12.0 [facility] Comment on above: Performed By: #### C BC #### [facility] [address] [place] [address] Dr. Rhonda Layton NEUT # 4.3 103/ul Normal 1.4-6.5 [facility] Comment on above: Performed By: #### C BC #### [facility] [address] [place] [address] Dr. Rhonda Layton Neutrophils/100 WBC (Bld) 69.1 % Normal 43.0-75.0 [facility] Comment on above: Performed By: #### C BC #### [facility] [address] [place] [address] Dr. Rhonda Layton Platelet mean volume (Bld) [Entitic vol] 9.4 fL Critically low 9.5-13.5 [facility] Comment on above: Performed By: #### C BC #### [facility] [address] [place] [address] Dr. Rhonda Layton PLT 221 103/ul Normal 150-450 [facility] Comment on above: Performed By: #### C BC #### [facility] [address] [place] [address] Dr. Rhonda Layton RBC 4.81 106/ul Normal 4.70-6.10 [facility] Comment on above: Performed By: #### C BC #### [facility] [address] [place] [address] Dr. Rhonda Layton WBC 6.2 103/ul Normal 4.0-11.0 [facility] Comment on above: Performed By: #### C BC #### [facility] [address] [address] [address] Rhonda Layton FREE THYROXINE INDEX T7on FTI 2.[address] [facility] Comment on above: Performed By: #### T 7, CMP, LIPID, TSH #### [facility] [address] [place] [address] Dr. Rhonda Layton T3U 36.0 % Normal 23.5-40.5 [facility] Comment on above: Performed By: #### T 7, CMP, LIPID, TSH #### [facility] [address] [address] [address] Rhonda Layton T4 [Mass/Vol] 7.90 ug/dL Normal 5.53-11.00 [facility] Comment on above: Performed By: #### T 7, CMP, LIPID, TSH #### [facility] [address] [address] [address] Rhonda Layton GLYCOHEMOGLOBIN A1Con 2021 ADA RECOMMENDATION ADA THERAPEUTIC TARG ET 6.0 - 7.0 ACTION SUGGESTED > 7.[address] [facility] Comment on above: Performed By: #### A 1C #### [facility] [address] [place] [address] Dr. Rhonda Layton Glucose [Mass/Vol] 232 mg/dL Normal [facility] Comment on above: Performed By: #### A 1C #### [facility] [address] [place] [address] Dr. Rhonda Layton HbA1c (Bld) [Mass fraction] 9.7 % Critically high <=6.0 [facility] Comment on above: Performed By: #### A 1C #### [facility] [address] [place] [address] Dr. Rhonda Layton LIPID PROFILEon 07-01-2021 CHOL-HDL RATIO NORM SEE BELOW Normal [facility] Comment on above: Result Comment: 3.3 - 4.4 LOW RISK 4.4 - 7.1 AVERAGE RISK 7.1 - 11.0 MODERATE RISK >11.0 HIGH RISK Performed By: #### T 7, CMP, LIPID, TSH #### [facility] [address] [address] [address] Rhonda Layton Cholesterol [Mass/Vol] 173 mg/dL Normal <=200 [facility] Comment on above: Performed By: #### T 7, CMP, LIPID, TSH #### [facility] [address] [address] [address] Rhonda Layton Cholesterol in HDL [Mass/Vol] 36 mg/dL Critically low 40-60 [facility] Comment on above: Performed By: #### T 7, CMP, LIPID, TSH #### [facility] [address] [address] [address] Rhonda Layton Cholesterol in LDL [Mass/Vol] 113.0 mg/dL Normal [facility] Comment on above: Performed By: #### T 7, CMP, LIPID, TSH #### [facility] [address] [address] [address] Rhonda Layton Cholesterol.total/C holesterol in HDL [Mass ratio] 4.8 {ratio} Normal [facility] Comment on above: Performed By: #### T 7, CMP, LIPID, TSH #### [facility] [address] [address] [address] Rhonda Layton HDL NORMAL > or = 60 mg/dl - LO W CARDIOVASCULAR RISK <40 mg/dl - HIGH CARDIOVASCULAR RISK Normal [facility] Comment on above: Performed By: #### T 7, CMP, LIPID, TSH #### [facility] [address] [address] [address] Rhonda Layton LDL CALC NORMAL SEE BELOW Normal [facility] Comment on above: Result Comment: <100 mg/dl OPTIMAL 100 - 129 mg/dl NEAR OR ABOVE OPTIMAL 130 - 159 mg/dl BORDERLINE HIGH 160 - 189 mg/dl HIGH >190 mg/dl VERY HIGH Performed By: #### T 7, CMP, LIPID, TSH #### [facility] [address] [address] [address] Rhonda Layton Triglyceride [Mass/Vol] 120 mg/dL Normal <=150 [facility] Comment on above: Performed By: #### T 7, CMP, LIPID, TSH #### [facility] [address] [address] [address] Rhonda Layton VLDL CALC 24.0 mg/dL Normal [facility] Comment on above: Performed By: #### T 7, CMP, LIPID, TSH #### [facility] [address] [address] [address] Rhonda Layton PROF 14(COMP METB)on 022 Albumin [Mass/Vol] 3.8 g/dL Normal 3.4-5.0 [facility] Comment on above: Performed By: #### T 7, CMP, LIPID, TSH #### [facility] [address] [address] [address] Rhonda Layton Albumin/Globulin [Mass ratio] 1.1 {ratio} Normal [facility] Comment on above: Performed By: #### T 7, CMP, LIPID, TSH #### [facility] [address] [address] [address] Rhonda Layton ALP [Catalytic activity/Vol] 82 U/L Normal 46-116 [facility] Comment on above: Performed By: #### T 7, CMP, LIPID, TSH #### [facility] [address] [address] [address] Rhonda Layton ALT [Catalytic activity/Vol] 24 U/L Normal 16-63 [facility] Comment on above: Performed By: #### T 7, CMP, LIPID, TSH #### [facility] [address] [address] [address] Rhonda Layton Anion gap [Moles/Vol] 13.1 mmol/L Normal [facility] Comment on above: Performed By: #### T 7, CMP, LIPID, TSH #### [facility] [address] [address] [address] Rhonda Layton AST [Catalytic activity/Vol] 9 U/L Critically low 15-37 [facility] Comment on above: Performed By: #### T 7, CMP, LIPID, TSH #### [facility] [address] [address] [address] Rhonda Layton Bilirubin [Mass/Vol] 1.2 mg/dL Normal 0.2-1.3 [facility] Comment on above: Performed By: #### T 7, CMP, LIPID, TSH #### [facility] [address] [place] [address] Dr. Rhonda Layton Calcium [Mass/Vol] 8.7 mg/dL Normal 8.5-10.1 [facility] Comment on above: Performed By: #### T 7, CMP, LIPID, TSH #### [facility] [address] [place] [address] Dr. Rhonda Layton Chloride [Moles/Vol] 104 mmol/L Normal 98-107 [facility] Comment on above: Performed By: #### T 7, CMP, LIPID, TSH #### [facility] [address] [place] [address] Dr. Rhonda Layton CO2 [Moles/Vol] 29.0 mmol/L Normal 22.0-30.0 [facility] Comment on above: Performed By: #### T 7, CMP, LIPID, TSH #### [facility] [address] [place] [address] Dr. Rhonda Layton Creatinine [Mass/Vol] 0.79 mg/dL Normal 0.66-1.25 [facility] Comment on above: Performed By: #### T 7, CMP, LIPID, TSH #### [facility] [address] [place] [address] Dr. Rhonda Layton EGFR-AF MARSHALLESE >60 Normal >=60 [facility] Comment on above: Performed By: #### T 7, CMP, LIPID, TSH #### [facility] [address] [place] [address] Dr. Rhonda Layton EGFR-NON AF MARSHALLESE >60 Normal >=60 [facility] Comment on above: Performed By: #### T 7, CMP, LIPID, TSH #### [facility] [address] [place] [address] Dr. Rhonda Layton Globulin (S) [Mass/Vol] 3.4 g/dL Normal [facility] Comment on above: Performed By: #### T 7, CMP, LIPID, TSH #### [facility] [address] [address] [address] Rhonda Layton Glucose [Mass/Vol] 181 mg/dL Critically high 74-106 [facility] Comment on above: Performed By: #### T 7, CMP, LIPID, TSH #### [facility] [address] [address] [address] Rhonda Layton Potassium [Moles/Vol] 4.1 mmol/L Normal 3.4-5.0 [facility] Comment on above: Performed By: #### T 7, CMP, LIPID, TSH #### [facility] [address] [address] [address] Rhonda Layton Protein [Mass/Vol] 7.2 g/dL Normal 6.1-8.2 [facility] Comment on above: Performed By: #### T 7, CMP, LIPID, TSH #### [facility] [address] [address] [address] Rhonda Layton Sodium [Moles/Vol] 142 mmol/L Normal 137-145 [facility] Comment on above: Performed By: #### T 7, CMP, LIPID, TSH #### [facility] [address] [address] [address] Rhonda Layton Urea nitrogen [Mass/Vol] 17.0 mg/dL Normal 7.0-18.0 [facility] Comment on above: Performed By: #### T 7, CMP, LIPID, TSH #### [facility] [address] [address] [address] Rhonda Layton Urea nitrogen/Creatinine [Mass ratio] 21.5 mg/mg Normal [facility] Comment on above: Performed By: #### T 7, CMP, LIPID, TSH #### [facility] [address] [address] [address] Rhonda Layton TSHon 07-01-2021 TSH 1.943 uIU/mL Normal 0.470-4.680 [facility] Comment on above: Performed By: #### T 7, CMP, LIPID, TSH #### [facility] [address] [address] [address] Rhonda Layton TSH RANGE SEE BELOW Normal [facility] Comment on above: Result Comment: <0.3 4 UIU/ml HYPERTHYROID 0.34-5.60 UIU/ml EUTHYROID >5.60 UIU/ml HYPOTHYROID Performed By: #### T 7, CMP, LIPID, TSH #### [facility] [address] [address] [address] Rhonda Layton Endoscopy Reporton Endoscopy Report MR#: [id number] [facility] Pt. Name: Marcia Hogan Surgery Date: 11/18/2020 Room #: Date of : 1975 PROCEDURE NOTE ATTENDING: Tanvi Vazquez M.D. PROCEDURE PERFORMED: Endoscopic ultrasound. INDICATIONS: History of pancreatitis and peripancreatic fluid collection, rule out pancreatic lesion, rule out choledocholithiasis. MEDICATIONS: General anesthesia administered by Anesthesia team. DIRECTOR ZONE: Gilberto Solomon M.D. PROCEDURE IN DETAIL: After [...] M.D. Date Trans: 11/19/2020 08:50 A/maria elena [id number] Normal [facility] GI Letteron 11-19-2020 GI Letter [facility] Academic Department of Medicine Academic Fax: Division of [phone] Gastroenterology Clinic Phone: [facility] [phone] [facility] Fax: [place] [phone] [address] RE: Patient Name: Marcia Hogan MR #: [id number] Date of : 1975 Date of Service:11/18/2020 Kevan ArellanoN.P. [address] [place] [address] Dear Ms. Damian, I had the pleasure of seeing your [...] MEDICATIONS General anesthesia administered by Anesthesia team. DIRECTOR ZONE Gilberto Solomon M.D. PROCEDURE IN DETAIL After [...] 08:51 A/mmo Revised: 11/19/2020 12:16 P/pa Copy/paste [id number] cc: Mariam Damian C.N.P. [address] [place] [address] Normal [facility] ANAon 08-31-2020 SAMRA SCREEN <1:40 Normal <1:40,1:40 [facility] Comment on above: Performed By: #### 1 0196 #### [facility] [address] IGG SUBCLASSES (1,2,3,4) 505 77on 08-31-2020 IGG SUBCLASS 1 654 mg/dL Normal 240-1118 [facility] Comment on above: Result Comment: REFE RENCE INTERVAL: Immunoglobulin G Subclass 1 The total IgG (mg/dL) can be derived from the sum of the subclass IgG1, IgG2, IgG3, and IgG4 values. However, a confirmatory and more precise total IgG is available by the turbidimetric method of quantitation for total IgG. Refer to test Immunoglobulin G, Serum ([id number]). Access complete set of age- and/or gender-specific reference intervals for this test in the [facility] Test Directory (The Online 401). IGG SUBCLASS 2 449 mg/dL Normal 124-549 [facility] Comment on above: Result Comment: REFE RENCE INTERVAL: Immunoglobulin G Subclass 2 Access complete set of age- and/or gender-specific reference intervals for this test in the [facility] Test Directory (The Online 401). IGG SUBCLASS 3 64 mg/dL Normal 21-134 [facility] Comment on above: Result Comment: REFE RENCE INTERVAL: Immunoglobulin G Subclass 3 Access complete set of age- and/or gender-specific reference intervals for this test in the [facility] Test Directory (The Online 401). IGG SUBCLASS 4 40 mg/dL Normal 1-123 [facility] Comment on above: Result Comment: REFE RENCE INTERVAL: Immunoglobulin G Subclass 4 Access complete set of age- and/or gender-specific reference intervals for this test in the [facility] Test Directory (The Online 401). Performed By: [facility] [address] [place] [id number] Lapper: Fadumo Toribio MD LIPID PROFILEon 08-31-2020 Cholesterol [Mass/Vol] 179 mg/dL Normal 120-200 [facility] Comment on above: Result Comment: CHOL ESTEROL REFERENCE RANGE: 20 YEARS AND OLDER CARDIOVASCULAR RISK Less than 200 mg/dl Low Risk 200 to 239 mg/dl Borderline Risk 240 mg/dl and greater High Risk Performed By: #### 4 4225, 10682 #### [facility] [address] [place] [address], [facility] Cholesterol in HDL [Mass/Vol] 25 mg/dL Normal 23-92 [facility] Comment on above: Result Comment: Slig ht variation in normal range could be due to gender and/or age. HDL CHOLESTEROL REFERENCE RANGE: 20 years and older Cardiovascular Risk > or =60 mg/dL Desirable 40 TO 59 mg/dL Low Risk <40 mg/dL High Risk Performed By: #### 4 3620, 74948 #### [facility] [address] [place] [address], [facility] Cholesterol in LDL [Mass/Vol] 125 mg/dL Normal 0-130 [facility] Comment on above: Result Comment: LDL IS A CALCULATION LDL IS ONLY VALID IF THE TRIG IS LESS THAN 400. Performed By: #### 4 6413, 41196 #### [facility] [address] [place] [address], [facility] Cholesterol.total/C holesterol in HDL [Mass ratio] 7.2 {ratio} High 0.0-4.5 [facility] Comment on above: Performed By: #### 4 6413, 15790 #### [facility] [address] [place] [address], [facility] NON-HDL CHOLESTEROL 154 mg/dL Normal [facility] Comment on above: Performed By: #### 4 6413, 58463 #### [facility] [address] [place] [address], [facility] Triglyceride [Mass/Vol] 147 mg/dL Normal 40-149 [facility] Comment on above: Result Comment: TRIG LYCERIDE REFERENCE RANGE: 20 YEARS AND OLDER CARDIOVASCULAR RISK LESS THAN 150 mg/dl LOW RISK 150 TO 199 mg/dl BORDERLINE RISK 200 mg/dl AND GREATER HIGH RISK Performed By: #### 4 6613, 63957 #### [facility] [address] [place] [address], [facility] VLDL CHOL 29 mg/dL Normal 0-40 [facility] Comment on above: Performed By: #### 4 6413, [id number] #### [facility] [address] [place] [address], [facility] LIVER BATTERYon 08-31-2020 Albumin [Mass/Vol] 4.3 g/dL Normal 3.5-5.7 [facility] Comment on above: Performed By: #### 4 8413, 75684 #### [facility] [address] [place] [address], [facility] ALKALINE PHOSPH 89 IU/L Normal 34-104 [facility] Comment on above: Performed By: #### 4 6413, 42590 #### [facility] [address] [place] [address], [facility] ALT [Catalytic activity/Vol] 32 U/L Normal 7-52 [facility] Comment on above: Performed By: #### 4 6413, 45668 #### [facility] [address] [place] [address], [facility] AST [Catalytic activity/Vol] 14 U/L Normal 13-39 [facility] Comment on above: Performed By: #### 4 6413, 72196 #### [facility] [address] [place] [id number], [facility] Bilirubin [Mass/Vol] 1.5 mg/dL High 0.3-1.0 [facility] Comment on above: Performed By: #### 4 6413, 39774 #### [facility] [address] [place] [id number], [facility] Bilirubin.direct [Mass/Vol] 0.3 mg/dL High 0.0-0.2 [facility] Comment on above: Performed By: #### 4 6413, 04713 #### [facility] [address] [place] [id number], [facility] Protein [Mass/Vol] 7.6 g/dL Normal 6.0-8.3 [facility] Comment on above: Performed By: #### 4 6413, 85224 #### [facility] [address] [facility] [place] [address], [facility] Patient Educationon 08-10-19 21 Patient Education Gastroenterology [...] fried or sweet foods. ? Take an yeam-itw-dmcojky or prescription medicine for constipation. General instructions [...] any changes or new symptoms. ? Take goqy-gev-jyqtmar and prescription medicines only as told by [...] a serious (more content not included)... Normal [facility] Provider Letter FTon 08-09 Provider Letter [facility] DAMIAN, [address] [place] [address] Re: MARCIA HOGAN Date of : 1975 Thank you for your referral of Marcia Hogan for right groin pain. I have enclosed my consultation notes for your review. I will be happy to follow Marcia should his symptoms persist. Sincerely, Mohit Francis MD General Surgery [facility] Ambulatory Clinical Summaryo n 08-06-2020 Ambulatory Clinical Summary {[id number] [facility] Physician Referralon 021 Physician Referral [phone] [facility] [id number] D:127 [facility] Encounters Encounter Date Encounter Type Care Provider Facility Start: 12-24-2021 End: 12-25-2021 ambulatory MARIAM DAMIAN Facility:[facility] Start: 10-23-2021 ambulatory MARIAM DAMIAN Facility: [facility] Start: 07-06-2021 Encounter for genera l adult medical examination without abnormal findings DR JOHANN PINA [facility] Start: 07-01-2021 End: 07-02-[address] JOHANN PINA Facility:[facility] Start: 07-01-2021 End: 07-02-2021 Encounter for general adult medical examination without abnormal findings DR JOHANN PINA Facility:[facility] Start: 11-18-2020 End: 11-19-2020 ambulatory REFERRED SELF Facility:[facility] Procedures Date Procedure Procedure Detail Performing Clinician Start: 11-18-2020 ANES UPR GI NDSC PX NOS REFERRED SELF Start: 11-18-2020 EGD US EXAM DUODENUM/JEJUNUM TANVI VAZQUEZ Payers Date Payer Category Payer Private Health Insurance [id number] 1975 Unknown [id number] 1975 Unknown [id number] 1975 Unknown [id number] 1975 Unknown [id number] 1961 Private Health Insurance [id number] 1961 Self-pay 1961 Unknown [id number] Clinical Note 08-09-2020 Note Date & Type [...] patient has appointment in several weeks with neurology physician assistant specializing in pancreatitis. Review of Systems PHQ [...] Abdominal pain, right lower quadrant Acute left OYSTER GRADER stroke Acute pancreatitis without necrosis or infection, unspecified Balance problem BMI 25.0-25.9,adult Chronic pancreatitis Decreased appetite Difficulty swallowing Elevated blood pressure reading Esophageal diverticulum Hydronephrosis of right kidney LUQ pain Pancreatic pseudocyst Personal history of urinary calculi Right inguinal hernia Right testicular pain Smoking Weight loss Historical No qualifying data Procedure/Surgical (more content not included)... [facility] Comment on above: Result Comment: Elec tronically Signed By: BEBO BLISS, Mohit Zhang.mary\Date and Time Signed: 08/09/20 12:25 EDT Summary [...] section and content) DATE CREATED AUTHOR 08/11/2020 [facility] DATE CREATED AUTHOR AUTHOR'S ORGANIZ ATION 12/16/2020 [facility] DATE CREATED AUTHOR AUTHOR'S ORGANIZ ATION 12/27/2021 [facility] RECORDS PERTAINING TO PATIENTS WHO ARE [...] BE BASED ON THE PRIMARY CLINICAL RECORDS. [facility]. provides no warranty or guarantee of the accuracy or completeness of information in this document.
[2023-11-17 08:02] LABS: Estimated Average Glucose 292 mg/dL; Glycohemoglobin A1C 11.8 % (4.5-6.2)
[2023-11-17 08:38] LABS: Chol HDL Ratio 5.6; Cholesterol 180 mg/dL (<=200); HDL Cholesterol 32 mg/dL (40-60); Triglycerides 276 mg/dL (<=150); VLDL CHOLESTEROL 55.2 mg/dL
== END 2023-11-17 07:25 | disposition home or self-care (01) ==
LOC: LAB 07:25
PROVIDERS: PCP Nurse Practitioner Family; Visit Provider Nurse Practitioner Family
DX: E11.9 Type 2 diabetes mellitus without complications (principal)
CPT/HCPCS: 36415; 80061; 83036

== ENCOUNTER 2024-11-15 08:09 | Outpatient (OUT) | payer OTHER, SELFPAY ==
--- OUTSIDE RECORDS SUMMARY | 2024-11-15 08:13 | XMS_ITS | Clinical Summary ---
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 Phone Unavailable Primary Care Provider Unavailabl e Social History Tobacco Use Types Packs/Day Years Used Date Smoking Tobacco: Never Assessed [place] Safety & Environment Answer Date Rec orded Fear of Current or Ex-Partner Not on file Emotionally Abused Not on file 05/10/2023 Physically Abused Not on file 05/10/2023 Sexually Abused Not on file 05/10/2023 Physically or Sexually Abused Not on file Sex and Gender Information Value Date Recorded Sex Assigned at Not on file Legal Sex Male 12:36 AM EDT Gender Identity Not on file Sexual Orientation Not on file Last Filed Vital Signs Vital Sign Reading Time Taken Comments Blood Pressure 113/72 08/31/2020 10:32 AM EDT Pulse 102 10/25/2020 3:00 PM EDT Temperature 37.1 C (98.7 F) 10/25/2020 3:00 PM EDT Respiratory Rate 16 10/25/2020 3:00 PM EDT Oxygen Saturation 98% 10/25/2020 3:00 PM EDT Inhaled Oxygen Concentration - - Weight 90.9 kg (200 lb 6.4 oz) 10/25/2020 3:00 P M EDT Height 182.9 cm (6') 10/25/2020 2:59 PM EDT Body Mass Index 27.18 10/25/2020 2:59 PM EDT Plan of Treatment Not on file
--- OUTSIDE RECORDS SUMMARY | 2024-11-15 08:13 | XMS_ITS | Clinical Summary ---
Author Organization [facility] tem Address [id number] [address] [place] [address] Care Team Providers Care Binitrotoluene Operator Name Role Phone Mariam Damian [employer]WORK [employer] Primary Care Provider Allergies Active Allergy Reactions Criticality Noted Date Comments Amoxicillin 03/30/2020 Rash Medications No known medications Active Problems Problem Noted Date Diagnosed Date Cellulitis of scrotum 03/09/2020 Overview (09/15/2020): 03/09/20: Right hemiscrotal swelling. Improved with Cipro. Ultrasound suggesting cellulitis although on exam he has only some fullness in the right upper cord which is not definitively a hernia. Plan for him to continue his total of 2 weeks of Cipro. Recheck in 3 weeks. 03/30/20: Improved. I again examined him today and believe this is only a cord lipoma and not a hernia. If his symptoms worsen will refer to general surgery for opinion 09/15/20: Symptoms have progressed. He said he saw General surgery but was not impressed with the physician. Exam today is actually consistent with hernia which was easily reduced. He is interested in a 2nd opinion from General surgery. New referral placed today. Assessment & Plan (09/15/2020 4:47 PM EDT): I told him to go to the ER if problems before his appointment. 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 History of possible pyeloplasty on the left at the age of 15. He is interested in having the stone treated in addition to the workup for possible UPJ obstruction. 02/18/20: Left retrograde pyelogram showing normal ureter with no evidence of ureteral stricture, right retro pyelogram with right UPJ obstruction with right lower pole stone treated with laser lithotripsy and stent on string 03/01/21: Follow-up ultrasound showing stable mild bilateral hydronephrosis. 7 mm stone right lower pole. Asymptomatic. Recheck 1 year Assessment & Plan (01/21/2020 4:15 PM EST): He would like to follow with Dr. Rodriguez. I will discuss with him, but we will consider cystoscopy/bilateral retrograde pyelogram/right ureteroscopy/holmium laser/stent placement. Patient agrees with the plan. Impacted gallstone of gallbladder 01/03/2020 Acute pancreatitis 01/01/2020 Tobacco dependence due to cigarettes 01/01/2020 Immunizations Immunization Administration Dates Next Due SARS-COV-2 (COVID-19) Vaccine, Unspecified 09/04,08/14/2020 Family History Medical History Relation Name Comments No Known Problems Brother No Known Problems Daughter 1 No Known Problems Daughter 2 No Known Problems Daughter 3 No Known Problems Father No Known Problems Mother status unsure No Known Problems Sister 1 No Known Problems Sister 2 Relation Name Status Comments Brother Alive Daughter 1 Alive Daughter 2 Alive Daughter 3 Alive Father Alive Mother status unsure Alive Sister 1 Alive Sister 2 Alive Social History Tobacco Use Types Packs/Day Years Used Date Smoking Tobacco: Former Cigarettes Q uit: 2020 Smokeless Tobacco: Never Alcohol Use Standard Drinks/Week Comments Yes 0 (1 standard drink = 0.6 oz pur e alcohol) socially Social Connection and Isolation Panel [NHANES] A nswer Date Recorded In a typical week, how many times do you talk on the phone with family, friends, or neighbors? Patient declined 01/01/2020 How often do you get togethe r with friends or relatives? Patient declined 01/01/2020 How often do you attend anabaptist or anabaptism serv ices? Patient declined 01/01/2020 Do you belong to any clubs o r organizations such as anabaptist groups, unions, fraternal or athletic groups, or school groups? Patient declined 01/01/2020 How often do you attend meet ings of the clubs or organizations you belong to? Patient declined 01/01/2020 Are you , , di vorced, , never , or living with a partner? Patient declined 01/01/2020 Overall Financial Resource Strain (CARDIA) Answe r Date Recorded How hard is it for you to pa y for the very basics like food, housing, medical care, and heating? Not hard at all 01/01/2020 PHQ-2 Answer Date Recorded Total Score 0 01/01/2020 [facility] - Occupational Stress Questionnaire Answer Date Recorded Do you feel stress - tense, restless, nervous, or anxious, or unable to sleep at night because your mind is troubled all the time - these days? Not at all 01/01/2020 Exercise Vital Sign Answer Date Recorde d On average, how many days pe r week do you engage in moderate to strenuous exercise (like a brisk walk)? Patient declined On average, how many minutes do you engage in exercise at this level? Patient declined 01/01/2020 PRAPARE - Transportation Answer Date Re corded In the past 12 months, has l ack of transportation kept you from medical appointments or from getting medications? No 12/17 In the past 12 months, has l ack of transportation kept you from meetings, work, or from getting things needed for daily living? No 01/01/2020 Childcare Answer Date Recorded Do problems getting child ca re make it difficult for you to work or study? No 01/01/2020 Employment Answer Date Recorded Do you need help finding a l ocal career center and/or a training program? No 01/01/2020 Purpose - Life Answer Date Recorded Purpose and direction in life Unknown Sex and Gender Information Value Date Recorded Sex Assigned at Not on file Legal Sex Male 11:33 AM EDT Gender Identity Not on file Sexual Orientation Not on file Last Filed Vital Signs Vital Sign Reading Time Taken Comments Blood Pressure 112/92 06/21/2021 5:05 PM EDT Pulse 96 06/21/2021 5:05 PM EDT Temperature 36.1 C (97 F) 06/21/2021 5:05 PM EDT Respiratory Rate 20 06/21/2021 5:05 PM EDT Oxygen Saturation 96% 06/21/2021 5:05 PM EDT Inhaled Oxygen Concentration - - Weight 83.9 kg (185 lb) 06/21/2021 5:05 PM EDT Height 182.9 cm (6') 06/21/2021 5:05 PM EDT Body Mass Index 25.09 06/21/2021 5:05 PM EDT Plan of Treatment Health Maintenance Due Date Last Done Comments Depression Screening 1985 Tobacco Screening 1985 Adult BMI Screening 07/14/1991 DTaP,Tdap and Td Vaccines (2 - Td or Tdap) 10/09/2022 10/09/2012 Zoster (Shingles) Vaccine (1 of 2) 07/14/2023 COVID-19 Vaccine (3 - 2023-2 5 season) 2023 09/04/2020, 09/04/2020, 08/14/2020, Additional history exists Influenza Vaccine 11/17/2024 Goals Goal Patient Goal Type Associated Problems Recent Progress Patient-Stated? Author Home General Yes Nancie Noguera LSW Note: Evaluation of progress towards goal: Safe dc transition from hospital to home. Medical Devices Implanted Type Area Float Remover Device Identifier Shelf Expiration Date Model / Serial / Lot Mesh 3in Lg Pp Srgpro Nabsb Knit Plg Srg Strl Clr Hrn - Sna - [id number] Implanted:Qty: 1 on 09/28/2020 by Mohit Lanza DO at [facility] Mesh Right: Groin [employer] [place] 01/16/2025 [id number] / NA / [id number] Stnt Uret 6fr 26cm Pgtl Crv - [id number] - [id number] Implanted:Qty: 1 on 02/17/2020 by Donal Rodriguez MD at [facility] Stent Right: Ureter [employer] 11/16/2022 [id number] / [id number] / [id number] Insurance [employer] Advance Directives * Full Code (Latest Code Status on File) Date Activated Date Inactivated Comments 01/01/2020 9:05 AM 01/06/2020 5:38 PM Care Teams Binitrotoluene Operator Relationship Specialty Start Date End Date Mariam Damian, NETWORK [employer]KER [address] [facility], [place] [address] PCP - General Family Medicine 01/02/20
--- OUTSIDE RECORDS SUMMARY | 2024-11-15 08:14 | XMS_ITS | CCD ---
Author Organization [facility] Care Team Providers Care Sample Dye Mixer Name Role Phone SELF, REFERRED Primary Care Unavailable TANVI VAZQUEZ Surgeon Unavailable TANVI VAZQUEZ Attending Unavailable TANVI VAZQUEZ Admitting Unavailable [place] Procedure Practitioner Unavailab le SELF, REFERRED Referring Unavailable MARIAM DAMIAN Admitting Unavailable MARIAM DAMIAN Attending Unavailable SILVANA, DR WILLS Primary Care Unavailable SILVANA, DR WILLS Admitting Unavailable SILVANA, DR WILLS Attending Unavailable SILVANA, DR WILLS Primary Care Unavailable SILVANA, DR WILLS Consulting Unavailable MARIAM DAMIAN Admitting Unavailable MARIAM DAMIAN Attending Unavailable MARIAM DAMIAN Primary Care Unavailable MARIAM DAMIAN Consulting Unavailable Amilcar TORRES Attending Unavailable Allergies Allergy Classification Reported Allergen(s) Allergy Type Date of Onset Reaction(s) Facility (3 sources) Amoxicillin / Clavulanate; Translations: [Augmentin] Drug Allergy [facility] Repository Problems Problem Classification Problem Date Documented Da te Episodic/Chronic Diabetes mellitus without complication (4 sources) Type 2 diabetes mellitus without complications; Translations: [TYPE 2 DM WITHOUT COMPLICATIONS] Onset: 12-24-2021 Chronic Diabetes mellitus without complication (1 source) Other abnormal glucose; Translations: [OTHER ABNORMAL GLUCOSE] Onset: 12-27-2021 Episodic Results Test Name Value Interpretation Reference Range Facility GLYCOHEMOGLOBIN A1Con 2021 ADA RECOMMENDATION SEE BELOW Normal [facility] Comment on above: Result Comment: ADA RECOMMENDED LIMIT 4.0 - 6.0 ADA THERAPEUTIC TARGET < 7.0 ACTION SUGGESTED > 7.0 Performed By: #### A 1C #### [facility] [address] [place] [address] Dr. Rhonda Layton Glucose [Mass/Vol] 120 mg/dL Normal [facility] Comment on above: Performed By: #### A 1C #### [facility] [address] [address] [address] Rhonda Layton HbA1c (Bld) [Mass fraction] 5.8 % Normal 4.5-6.2 [facility] Comment on above: Performed By: #### A 1C #### [facility] [address] [place] [address] Dr. Rhonda Layton INSULINon 07-02-2021 Insulin 8.6 uIU/mL Normal 2.6-24.9 [facility] Comment on above: Performed By: #### I NSULIN #### [facility] [address] [place] [address] Dr. Rhonda Layton CBC AUTO DIFFon 07-01-2021 BASO # 0.0 103/ul Normal 0.0-0.1 [facility] Comment on above: Performed By: #### C BC #### [facility] [address] [place] [address] Dr. Rhonda Layton Basophils/100 WBC (Bld) 0.5 % Normal 0.2-2.0 [facility] Comment on above: Performed By: #### C BC #### [facility] [address] [place] [address] Dr. Rhonda Layton EO # 0.1 103/ul Normal 0.0-0.7 [facility] Comment on above: Performed By: #### C BC #### [facility] [address] [place] [address] Dr. Rhonda Layton Eosinophils/100 WBC (Bld) 1.5 % Normal 0.9-7.0 [facility] Comment on above: Performed By: #### C BC #### [facility] [address] [place] [address] Dr. Rhonda Layton Erythrocyte distribution width (RBC) [Ratio] 13.7 % Normal 11.0-15.0 [facility] Comment on above: Performed By: #### C BC #### [facility] [address] [place] [address] Dr. Rhonda Layton Hematocrit (Bld) [Volume fraction] 41.8 % Critically low 42.0-54.0 [facility] Comment on above: Performed By: #### C BC #### [facility] [address] [address] [address] Rhonda Layton Hemoglobin (Bld) [Mass/Vol] 13.7 g/dL Critically low 14.0-18.0 [facility] Comment on above: Performed By: #### C BC #### [facility] [address] [address] [address] Rhonda Layton IG # 0.03 10e3/ul Normal 0.00-0.03 [facility] Comment on above: Performed By: #### C BC #### [facility] [address] [place] [address] Dr. Rhonda Layton IG % 0.5 % Normal 0.0-0.5 [facility] Comment on above: Performed By: #### C BC #### [facility] [address] [place] [address] Dr. Rhonda Layton LYMPH # 1.2 103/ul Normal 1.2-3.8 [facility] Comment on above: Performed By: #### C BC #### [facility] [address] [place] [address] Dr. Rhonda Layton Lymphocytes/100 WBC (Bld) 19.5 % Critically low 20.5-60.0 [facility] Comment on above: Performed By: #### C BC #### [facility] [address] [place] [address] Dr. Rhonda Layton MANUAL DIFF REQ NO Normal [facility] Comment on above: Performed By: #### C BC #### [facility] [address] [place] [address] Dr. Rhonda Layton MCH (RBC) [Entitic mass] 28.5 pg Normal 25.9-34.0 [facility] Comment on above: Performed By: #### C BC #### [facility] [address] [place] [address] Dr. Rhonda Layton MCHC (RBC) [Mass/Vol] 32.8 g/dL Normal 29.9-35.2 [facility] Comment on above: Performed By: #### C BC #### [facility] [address] [place], [place] [address] Dr. Rhonda Layton MCV (RBC) [Entitic vol] 86.9 fL Normal 80.0-94.0 [facility] Comment on above: Performed By: #### C BC #### [facility] [address] [place] [address] Dr. Rhonda Layton MONO # 0.6 103/ul Normal 0.3-0.8 [facility] Comment on above: Performed By: #### C BC #### [facility] [address] [place] [address] Dr. Rhonda Layton Monocytes/100 WBC (Bld) 8.9 % Normal 1.7-12.0 [facility] Comment on above: Performed By: #### C BC #### [facility] [address] [place] [address] Dr. Rhonda Layton NEUT # 4.3 103/ul Normal 1.4-6.5 [facility] Comment on above: Performed By: #### C BC #### [facility] [address] [place] [address] Dr. Rhonda Layton Neutrophils/100 WBC (Bld) 69.1 % Normal 43.0-75.0 [facility] Comment on above: Performed By: #### C BC #### [facility] [address] [place] [address] Dr. Rhonda Layton Platelet mean volume (Bld) [Entitic vol] 9.4 fL Critically low 9.5-13.5 [facility] Comment on above: Performed By: #### C BC #### [facility] [address] [place] [address] Dr. Rhonda Layton PLT 221 103/ul Normal 150-450 [facility] Comment on above: Performed By: #### C BC #### [facility] [address] [place] [address] Dr. Rhonda Layton RBC 4.81 106/ul Normal 4.70-6.10 [facility] Comment on above: Performed By: #### C BC #### [facility] [address] [place] [address] Dr. Rhonda Layton WBC 6.2 103/ul Normal 4.0-11.0 [facility] Comment on above: Performed By: #### C BC #### [facility] [address] [place] [address] Dr. Rhonda Layton FREE THYROXINE INDEX T7on FTI 2.84 Normal [facility] Comment on above: Performed By: #### T 7, CMP, LIPID, TSH #### [facility] [address] [place] [address] Dr. Rhonda Layton T3U 36.0 % Normal 23.5-40.5 [facility] Comment on above: Performed By: #### T 7, CMP, LIPID, TSH #### [facility] [address] [place] [address] Dr. Rhonda Layton T4 [Mass/Vol] 7.90 ug/dL Normal 5.53-11.00 [facility] Comment on above: Performed By: #### T 7, CMP, LIPID, TSH #### [facility] [address] [address] [address] Rhonda Layton GLYCOHEMOGLOBIN A1Con 2021 ADA RECOMMENDATION ADA THERAPEUTIC TARG ET 6.0 - 7.0 ACTION SUGGESTED > 7.0 [facility] Comment on above: Performed By: #### A 1C #### [facility] [address] [place] [address] Dr. Rhonda Layton Glucose [Mass/Vol] 232 mg/dL Normal [facility] Comment on above: Performed By: #### A 1C #### [facility] [address] [place] [address] Dr. Rhonda Layton HbA1c (Bld) [Mass fraction] 9.7 % Critically high <=6.0 [facility] Comment on above: Performed By: #### A 1C #### [facility] [address] [place] [address] Dr. Rhonda Layton LIPID PROFILEon 07-01-2021 CHOL-HDL RATIO NORM SEE BELOW Normal [facility] Comment on above: Result Comment: 3.3 - 4.4 LOW RISK 4.4 - 7.1 AVERAGE RISK 7.1 - 11.0 MODERATE RISK >11.0 HIGH RISK Performed By: #### T 7, CMP, LIPID, TSH #### [facility] [address] [address] [address] Rhonda Layton Cholesterol [Mass/Vol] 173 mg/dL Normal <=200 [facility] Comment on above: Performed By: #### T 7, CMP, LIPID, TSH #### [facility] [address] [address] [address] Rhonda Layton Cholesterol in HDL [Mass/Vol] 36 mg/dL Critically low 40-60 [facility] Comment on above: Performed By: #### T 7, CMP, LIPID, TSH #### [facility] [address] [address] [address] Rhonda Layton Cholesterol in LDL [Mass/Vol] 113.0 mg/dL Normal [facility] Comment on above: Performed By: #### T 7, CMP, LIPID, TSH #### [facility] [address] [address] [address] Rhonda Layton Cholesterol.total/C holesterol in HDL [Mass ratio] 4.8 {ratio} Normal [facility] Comment on above: Performed By: #### T 7, CMP, LIPID, TSH #### [facility] [address] [address] [address] Rhonda Layton HDL NORMAL > or = 60 mg/dl - LO W CARDIOVASCULAR RISK <40 mg/dl - HIGH CARDIOVASCULAR RISK Normal [facility] Comment on above: Performed By: #### T 7, CMP, LIPID, TSH #### [facility] [address] [place] [address] Dr. Rhonda Layton LDL CALC NORMAL SEE BELOW Normal [facility] Comment on above: Result Comment: <100 mg/dl OPTIMAL 100 - 129 mg/dl NEAR OR ABOVE OPTIMAL 130 - 159 mg/dl BORDERLINE HIGH 160 - 189 mg/dl HIGH >190 mg/dl VERY HIGH Performed By: #### T 7, CMP, LIPID, TSH #### [facility] [address] [address] [address] Rhonda Layton Triglyceride [Mass/Vol] 120 mg/dL Normal <=150 [facility] Comment on above: Performed By: #### T 7, CMP, LIPID, TSH #### [facility] [address] [address] [address] Rhonda Layton VLDL CALC 24.0 mg/dL Normal [facility] Comment on above: Performed By: #### T 7, CMP, LIPID, TSH #### [facility] [address] [address] [address] Rhodna Layton PROF 14(COMP METB)on 022 Albumin [Mass/Vol] 3.8 g/dL Normal 3.4-5.[address] [facility] Comment on above: Performed By: #### T 7, CMP, LIPID, TSH #### [facility] [address] [address] [address] Rhonda Layton Albumin/Globulin [Mass ratio] 1.1 {ratio} Normal [facility] Comment on above: Performed By: #### T 7, CMP, LIPID, TSH #### [facility] [address] [address] [address] Rhonda Layton ALP [Catalytic activity/Vol] 82 U/L Normal 46-116 [facility] Comment on above: Performed By: #### T 7, CMP, LIPID, TSH #### [facility] [address] [address] [address] Rhonda Layton ALT [Catalytic activity/Vol] 24 U/L Normal 16-63 [facility] Comment on above: Performed By: #### T 7, CMP, LIPID, TSH #### [facility] [address] [address] [address] Rhonda Layton Anion gap [Moles/Vol] 13.1 mmol/L Normal [facility] Comment on above: Performed By: #### T 7, CMP, LIPID, TSH #### [facility] [address] [address] [address] Rhonda Layton AST [Catalytic activity/Vol] 9 U/L Critically low 15-37 [facility] Comment on above: Performed By: #### T 7, CMP, LIPID, TSH #### [facility] [address] [address] [address] Rhonad Layton Bilirubin [Mass/Vol] 1.2 mg/dL Normal 0.2-1.3 [facility] Comment on above: Performed By: #### T 7, CMP, LIPID, TSH #### [facility] [address] [address] [address] Rhonda Layton Calcium [Mass/Vol] 8.7 mg/dL Normal 8.5-10.[address] [facility] Comment on above: Performed By: #### T 7, CMP, LIPID, TSH #### [facility] [address] [address] [address] Rhonda Layton Chloride [Moles/Vol] 104 mmol/L Normal 98-107 [facility] Comment on above: Performed By: #### T 7, CMP, LIPID, TSH #### [facility] [address] [place] [address] Dr. Rhonda Layton CO2 [Moles/Vol] 29.0 mmol/L Normal 22.0-30.0 [facility] Comment on above: Performed By: #### T 7, CMP, LIPID, TSH #### [facility] [address] [place] [address] Dr. Rhonda Layton Creatinine [Mass/Vol] 0.79 mg/dL Normal 0.66-1.25 [facility] Comment on above: Performed By: #### T 7, CMP, LIPID, TSH #### [facility] [address] [place] [address] Dr. Rhonda Layton EGFR-AF CHADIAN >60 Normal >=60 [facility] Comment on above: Performed By: #### T 7, CMP, LIPID, TSH #### [facility] [address] [place] [address] Dr. Rhonda Layton EGFR-NON AF CHADIAN >60 Normal >=60 [facility] Comment on above: Performed By: #### T 7, CMP, LIPID, TSH #### [facility] [address] [address] [address] Rhonda Layton Globulin (S) [Mass/Vol] 3.4 g/dL Normal [facility] Comment on above: Performed By: #### T 7, CMP, LIPID, TSH #### [facility] [address] [place] [address] Dr. Rhonda Layton Glucose [Mass/Vol] 181 mg/dL Critically high 74-106 [facility] Comment on above: Performed By: #### T 7, CMP, LIPID, TSH #### [facility] [address] [place] [address] Dr. Rhonda Layton Potassium [Moles/Vol] 4.1 mmol/L Normal 3.4-5.0 [facility] Comment on above: Performed By: #### T 7, CMP, LIPID, TSH #### [facility] [address] [place] [address] Dr. Rhonda Layton Protein [Mass/Vol] 7.2 g/dL Normal 6.1-8.[address] [facility] Comment on above: Performed By: #### T 7, CMP, LIPID, TSH #### [facility] [address] [place] [address] Dr. Rhonda Layton Sodium [Moles/Vol] 142 mmol/L Normal 137-145 [facility] Comment on above: Performed By: #### T 7, CMP, LIPID, TSH #### [facility] [address] [place] [address] Dr. Rhonda Layton Urea nitrogen [Mass/Vol] 17.0 mg/dL Normal 7.0-18.0 [facility] Comment on above: Performed By: #### T 7, CMP, LIPID, TSH #### [facility] [address] [place] [address] Dr. Rhonda Layton Urea nitrogen/Creatinine [Mass ratio] 21.5 mg/mg Normal [facility] Comment on above: Performed By: #### T 7, CMP, LIPID, TSH #### [facility] [address] [place] [address] Dr. Rhonda Layton TSHon 07-01-2021 TSH 1.943 uIU/mL Normal 0.470-4.680 [facility] Comment on above: Performed By: #### T 7, CMP, LIPID, TSH #### [facility] [address] [place], [place] [address] Dr. Rhonda Layton TSH RANGE SEE BELOW Normal [facility] Comment on above: Result Comment: <0.3 4 UIU/ml HYPERTHYROID 0.34-5.60 UIU/ml EUTHYROID >5.60 UIU/ml HYPOTHYROID Performed By: #### T 7, CMP, LIPID, TSH #### [facility] [address] [place], [place] [address] Dr. Rhonda Layton Endoscopy Reporton Endoscopy Report MR#: [id number] [facility] Pt. Name: aMrcia Hogan Surgery Date: 11/18/2020 Room #: 0C Date of : 1975 PROCEDURE NOTE ATTENDING: Tanvi Vazquez M.D. PROCEDURE PERFORMED: Endoscopic ultrasound. INDICATIONS: History of pancreatitis and peripancreatic fluid collection, rule out pancreatic lesion, rule out choledocholithiasis. MEDICATIONS: General anesthesia administered by Anesthesia team. INSOLE CHANNELER: Gilberto Solomon M.D. PROCEDURE IN DETAIL: After [...] M.D. Date Trans: 11/19/2020 08:50 A/maria elena [id number] Normal [facility] GI Letteron 11-19-2020 GI Letter [facility] Academic Department of Medicine Academic Fax: Division of [phone] Gastroenterology Clinic Phone: [facility] [phone] [facility] Fax: [place] [phone] [address] RE: Patient Name: Marcia Hogan MR #: [id number] Date of : 1975 Date of Service:11/18/2020 Mariam Damian C.N.P. [address] [place] [address] Dear Ms. Damian, I had the pleasure [...] MEDICATIONS General anesthesia administered by Anesthesia team. INSOLE CHANNELER Gilberto Solomon M.D. PROCEDURE IN DETAIL After [...] supervise the fellow. Thank you very much, . Rickie for allowing me to participate in the care of this very pleasant patient. Sincerely, Electronically Signed by: Tanvi Vazquez M.D. 12/15/2020 08:16 A Tanvi Vazquez M.D. Date Dict: 11/18/2020/03:57 P/Tanvi Vazquez M.D. Date Trans: 11/19/2020 08:51 A/mmo Revised: 11/19/2020 12:16 P/pa Copy/paste [id number] cc: Mariam Damian C.N.P. [address] [place] [address] Normal [facility] ANAon 08-31-2020 SAMRA SCREEN <1:40 Normal <1:40,1:40 [facility] Comment on above: Performed By: #### 1 0196 #### [facility] [address] IGG SUBCLASSES (1,2,3,4) 505 77on 08-31-2020 IGG SUBCLASS 1 654 mg/dL Normal 240-1118 [facility] radha [facility] Comment on above: Result Comment: REFE RENCE INTERVAL: Immunoglobulin G Subclass 1 The total IgG (mg/dL) can be derived from the sum of the subclass IgG1, IgG2, IgG3, and IgG4 values. However, a confirmatory and more precise total IgG is available by the turbidimetric method of quantitation for total IgG. Refer to test Immunoglobulin G, Serum ([id number]). Access complete set of age- and/or gender-specific reference intervals for this test in the [facility] Test Directory ([employer]). IGG SUBCLASS 2 449 mg/dL Normal 124-549 [facility] Comment on above: Result Comment: REFE RENCE INTERVAL: Immunoglobulin G Subclass 2 Access complete set of age- and/or gender-specific reference intervals for this test in the [facility] ([employer]). IGG SUBCLASS 3 64 mg/dL Normal 21-134 [facility] Comment on above: Result Comment: REFE RENCE INTERVAL: Immunoglobulin G Subclass 3 Access complete set of age- and/or gender-specific reference intervals for this test in the [facility] Test Directory ([employer]). IGG SUBCLASS 4 40 mg/dL Normal 1-123 [facility] Comment on above: Result Comment: REFE RENCE INTERVAL: Immunoglobulin G Subclass 4 Access complete set of age- and/or gender-specific reference intervals for this test in the [facility] Test Directory ([employer]). Performed By: [employer] [address] [place] [address] [employer] Operator: Fadumo Toribio MD LIPID PROFILEon 08-31-2020 Cholesterol [Mass/Vol] 179 mg/dL Normal 120-200 [facility] Comment on above: Result Comment: CHOL ESTEROL REFERENCE RANGE: 20 YEARS AND OLDER CARDIOVASCULAR RISK Less than 200 mg/dl Low Risk 200 to 239 mg/dl Borderline Risk 240 mg/dl and greater High Risk Performed By: #### 4 [id number], [id number] #### [address] Cholesterol in HDL [Mass/Vol] 25 mg/dL Normal 23-92 [facility] Comment on above: Result Comment: Slig ht variation in normal range could be due to gender and/or age. HDL CHOLESTEROL REFERENCE RANGE: 20 years and older Cardiovascular Risk > or =60 mg/dL Desirable 40 TO 59 mg/dL Low Risk <40 mg/dL High Risk Performed By: #### 4 6413, [id number] #### [facility] [address] [place] [address], [facility] Cholesterol in LDL [Mass/Vol] 125 mg/dL Normal 0-130 [facility] Comment on above: Result Comment: LDL IS A CALCULATION LDL IS ONLY VALID IF THE TRIG IS LESS THAN 400. Performed By: #### 4 6413, [id number] #### [facility] [address] [place] [address], [facility] Cholesterol.total/C holesterol in HDL [Mass ratio] 7.2 {ratio} High 0.0-4.5 [facility] Comment on above: Performed By: #### 4 6413, [id number] #### [facility] [address] [place] [address], [facility] NON-HDL CHOLESTEROL 154 mg/dL Normal [facility] Comment on above: Performed By: #### 4 6413, [id number] #### [facility] [address] [place] [address], [facility] Triglyceride [Mass/Vol] 147 mg/dL Normal 40-149 [facility] Comment on above: Result Comment: TRIG LYCERIDE REFERENCE RANGE: 20 YEARS AND OLDER CARDIOVASCULAR RISK LESS THAN 150 mg/dl LOW RISK 150 TO 199 mg/dl BORDERLINE RISK 200 mg/dl AND GREATER HIGH RISK Performed By: #### 4 6413, [id number] #### [facility] [address] [place] [address], [facility] VLDL CHOL 29 mg/dL Normal 0-40 [facility] Comment on above: Performed By: #### 4 6413, [id number] #### [facility] [address] [place] [address], [facility] LIVER BATTERYon 08-31-2020 Albumin [Mass/Vol] 4.3 g/dL Normal 3.5-5.7 [facility] Comment on above: Performed By: #### 4 6413, [id number] #### [facility] [address] [place] [address], [place] ALKALINE PHOSPH 89 IU/L Normal 34-104 [facility] Comment on above: Performed By: #### 4 6413, [id number] #### [facility] [address] [place] [address], [place] ALT [Catalytic activity/Vol] 32 U/L Normal 7-52 [facility] Comment on above: Performed By: #### 4 6413, [id number] #### [facility] [address] [place] [address], [place] AST [Catalytic activity/Vol] 14 U/L Normal 13-39 [facility] Comment on above: Performed By: #### 4 6413, [id number] #### [facility] [address] [place] [address], [place] Bilirubin [Mass/Vol] 1.5 mg/dL High 0.3-1.0 [facility] Comment on above: Performed By: #### 4 6413, [id number] #### [facility] [address] [place] [address], [place] Bilirubin.direct [Mass/Vol] 0.3 mg/dL High 0.0-0.2 [facility] Comment on above: Performed By: #### 4 6413, [id number] #### [facility] [address] [place] [address], [place] Protein [Mass/Vol] 7.6 g/dL Normal 6.0-8.3 [facility] Comment on above: Performed By: #### [id number] #### [facility] [address] [place] [address], [place] Encounters Encounter Date Encounter Type Care Provider Facility Start: 08-12-2024 End: 08-12-2024 [facility] Start: 12-24-2021 End: 12-25-2021 ambulatory MARIAM DAMIAN Facility:[facility] Start: 10-23-2021 ambulatory MARIAM DAMIAN Facility: [facility] Start: 07-06-2021 Encounter for genera l adult medical examination without abnormal findings DR JOHANN PINA [facility] Start: 07-01-2021 End: 07-02-[address] JOHANN PINA Facility:[facility] Start: 07-01-2021 End: 07-02-2021 Encounter for general adult medical examination without abnormal findings DR JOHANN PINA Facility:[facility] Start: 11-18-2020 End: 11-19-2020 ambulatory REFERRED SELF Facility:[facility] Procedures Date Procedure Procedure Detail Performing Clinician Start: 11-18-2020 ANES UPR GI NDSC PX NOS REFERRED SELF Start: 11-18-2020 EGD US EXAM DUODENUM/JEJUNUM TANVI VAZQUEZ Payers Date Payer Category Payer Private Health Insurance [id number] 1975 Unknown [id number] 1975 Unknown [id number] [id number] [id number] 1973 Unknown [id number] [id number] 1973 Unknown [id number] [id number] [id number] 1959 Private Health Insurance [id number] Self-pay 1961 Unknown [id number] Summary Purpose Family History No Family History Records FoundNo Family History Records FoundNo Family History Records Found Advance Directives No Advanced Directives Records FoundNo Advanced Directives Records FoundNo Advanced Directives Records Found Additional Source Comments (unrecognized sect ion and content) No Status Records FoundNo Status Records FoundNo Status Records Found INFORMATION SOURCE (unrecogn ized section and content) DATE CREATED AUTHOR 12/16/2020 [facility] DATE CREATED AUTHOR AUTHOR'S ORGANIZ ATION 12/27/2021 [facility] DATE CREATED AUTHOR AUTHOR'S ORGANIZ ATION 08/15/[address] [facility] FOR RECORDS PERTAINING TO PATIENTS WHO ARE [...] BE BASED ON THE PRIMARY CLINICAL RECORDS. [facility] [employer] [facility]. provides no warranty or guarantee of the accuracy or completeness of information in this document.
[2024-11-15 08:44] LABS: Hematocrit 38.9 % (42.0-54.0); Hemoglobin 13.5 g/dL (14.0-18.0); Immature Granulocytes Abs Auto 0.03 10^3/uL (0.00-0.03); Immature Granulocytes Pct Auto 0.5 % (0.0-0.5); Lymphocytes Absolute Auto 1.5 10^3/uL (1.2-3.8); Mean Corpuscular HGB Conc 34.7 g/dL (29.9-35.2); Mean Corpuscular Hemoglobin 29.5 pg (25.9-34.0); Mean Corpuscular Volume 85.1 fL (80.0-94.0); Platelet Count 250 10^3/uL (150-450); Red Blood Count 4.57 10^6/uL (4.70-6.10); White Blood Count 5.9 10^3/uL (4.0-11.0)
[2024-11-15 10:21] LABS: Alanine Aminotransferase 32 U/L (16-63); Albumin Globulin Ratio 1.0; Albumin Level 3.7 g/dL (3.4-5.0); Alkaline Phosphatase 75 U/L (46-116); Anion Gap 13.0; Aspartate Amino Transferase 12 U/L (15-37); Blood Urea Nitrogen 24.0 mg/dL (7.0-18.0); Calcium 9.3 mg/dL (8.5-10.1); Carbon Dioxide 28.0 mmol/L (21.0-32.0); Chloride 101 mmol/L (98-107); Cholesterol 104 mg/dL (<=200); Estimated GFR (African America >60 (>=60 mL/min/1.73m^2); Estimated GFR (Non-African Ame >60 (>=60 mL/min/1.73m^2); Free T3 2.12 pg/mL (2.18-3.98); Globulin 3.7 g/dL; Glucose 218 mg/dL (74-106); HDL Cholesterol 26 mg/dL (40-60); Potassium 4.0 mmol/L (3.5-5.1); Sodium 138 mmol/L (136-145); Thyroid Stimulating Hormone 2.664 uIU/mL (0.358-3.740); Total Protein 7.4 g/dL (6.4-8.2); Triglycerides 173 mg/dL (<=150); VLDL CHOLESTEROL 34.6 mg/dL
== END 2024-11-15 08:10 | disposition home or self-care (01) ==
PROVIDERS: PCP Nurse Practitioner Family; Visit Provider Nurse Practitioner Family
DX: Z00.00 Encounter for general adult medical examination without abnormal findings (principal); E11.9 Type 2 diabetes mellitus without complications; E78.00 Pure hypercholesterolemia, unspecified; F41.8 Other specified anxiety disorders
CPT/HCPCS: 36415; 80053; 80061; 83036; 84436; 84443; 84481; 85025; G0328